=== PATIENT | male | born 1945 | race Caucasian/White ===

== ENCOUNTER 2019-02-08 12:48 | Inpatient (IN) | payer MEDICARE ==
[2019-02-08 13:51] LABS: ALBUMIN 3.7 g/dL (3.5-5.0); ALKALINE PHOSPHATASE 82 U/L (38-126); ANION GAP 10 (5-19); ASPARTATE AMINO TRANSFERASE 21 U/L (17-59); BILIRUBIN,DIRECT 0.1 mg/dL (0.0-0.4); BILIRUBIN,TOTAL 0.5 mg/dL (0.2-1.3); BLOOD UREA NITROGEN 15 mg/dL (7-20); CALCIUM 9.9 mg/dL (8.4-10.2); CARBON DIOXIDE 23 mmol/L (22-30); CHLORIDE 102 mmol/L (98-107); CREATINE KINASE 30 U/L (55-170); GLUCOSE 102 mg/dL (75-110); POTASSIUM 4.5 mmol/L (3.6-5.0); TOTAL PROTEIN 6.8 g/dL (6.3-8.2)
[2019-02-08 14:04] LABS: CREATINE KINASE MB < 0.22 ng/mL (<4.55); TROPONIN I < 0.012 ng/mL
[2019-02-08 14:28] LABS: ABSOLUTE EOSINOPHILS # (AUTO) 0.4 10^3/uL (0.0-0.6); ABSOLUTE LYMPHOCYTES (AUTO) 1.3 10^3/uL (0.5-4.7); ABSOLUTE MONOCYTES (AUTO) 0.8 10^3/uL (0.1-1.4); ABSOLUTE NEUT (AUTO) 3.4 10^3/uL (1.7-8.2); BASOPHILS % (AUTO) 0.8 % (0-2); EOSINOPHILS % (AUTO) 6.8 % (0-6); HEMATOCRIT 45.8 % (37.9-51.0); HEMOGLOBIN 15.4 g/dL (13.5-17.0); LYMPHOCYTES % (AUTO) 21.5 % (13-45); MEAN CORPUSCULAR HEMOGLOBIN 29.4 pg (27.0-33.4); MEAN CORPUSCULAR HGB CONC 33.5 g/dL (32.0-36.0); MEAN CORPUSCULAR VOLUME 88 fl (80-97); MONOCYTES % (AUTO) 13.5 % (3-13); PLATELET COUNT 186 10^3/uL (150-450); RED BLOOD COUNT 5.23 10^6/uL (4.35-5.55); RED CELL DISTRIBUTION WIDTH 14.2 % (11.5-14.0); SEGMENTED NEUTROPHILS % (AUTO) 57.4 % (42-78); TOTAL CELLS COUNTED % (AUTO) 100 %; WHITE BLOOD COUNT 5.9 10^3/uL (4.0-10.5)
--- NOTE | 2019-02-08 15:57 | ER Document Report ---
ED Dizziness/Weakness - General TRAVEL OUTSIDE OF THE [place] IN LAST 30 DAYS: No - HPI Onset/Duration: Gradual Quality of pain: No pain Severity: Moderate Baseline gait: Uses a walker <PAULA MOHR - Last Filed: 02/08/19 16:31> <MARTHAFRANCISABELARDO - Last Filed: 02/08/19 21:24> - General Chief Complaint: General Weakness Stated Complaint: WEAKNESS Time Seen by Provider: 02/08/19 15:56 Primary Care Provider: BARTOLO REAL MD [Primary Care Provider] - Follow up as needed - HPI Notes: 73 year old male who is poorly functional at baseline - chronic respiratory failure 4 liters all the time, dm, alex, frequent falls, dementia, htn, depression, copd, obestiy - has had progressive weakness over the past few days perhaps a week per the . No known fever but cough present and poor appetite which is abnormaly for him. Bladder incontinence is not new. (PAULA MOHR) - Related Data Allergies/Adverse Reactions: No Known Allergies Allergy (Unverified 01/19/16 18:22) Past Medical History - Social History Smoking Status: Unknown if Ever Smoked Frequency of alcohol use: None Drug Abuse: None Family History: Reviewed & Not Pertinent Patient has suicidal ideation: No Patient has homicidal ideation: No - Past Medical History Cardiac Medical History: Reports: Hx Hypertension Pulmonary Medical History: Reports: Hx Asthma, Hx COPD Endocrine Medical History: Reports: Hx Diabetes Mellitus Type 2 Renal/ Medical History: Reports: Hx Benign Prostatic Hyperplasia Psychiatric Medical History: Reports: Hx Dementia, Hx Depression Past Surgical History: Reports: Hx Orthopedic Surgery <PAULA MOHR - Last Filed: 02/08/19 16:31> Review of Systems - Review of Systems Constitutional: Weakness EENT: No symptoms reported Cardiovascular: No symptoms reported Respiratory: See HPI, Cough Gastrointestinal: No symptoms reported Genitourinary: No symptoms reported Male Genitourinary: No symptoms reported Musculoskeletal: No symptoms reported Skin: No symptoms reported Hematologic/Lymphatic: No symptoms reported Neurological/Psychological: See HPI, Confusion, Dementia, Depression <PAULA MOHR - Last Filed: 02/08/19 16:31> Physical Exam - Vital signs Interpretation: Normal - General General appearance: Appears well, Alert - HEENT Head: Normocephalic, Atraumatic Eyes: Normal Pupils: PERRL - Respiratory Respiratory status: No respiratory distress Chest status: Nontender Breath sounds: Normal Chest palpation: Normal - Cardiovascular Rhythm: Regular Heart sounds: Normal auscultation Murmur: No - Abdominal Inspection: Normal Distension: No distension Bowel sounds: Normal Tenderness: Nontender Organomegaly: No organomegaly - Back Back: Normal, Nontender - Extremities General upper extremity: Normal inspection, Nontender, Normal color, Normal ROM, Normal temperature General lower extremity: Normal inspection, Nontender, Normal color, Normal ROM, Normal temperature, Normal weight bearing. No: Sammy's sign - Neurological Neuro grossly intact: Yes Cognition: Normal Orientation: AAOx4 [place] Coma Scale Eye Opening: Spontaneous [place] Coma Scale Verbal: Oriented [place] Coma Scale Motor: Obeys Commands Johnny Coma Scale Total: 15 Speech: Normal Motor strength normal: LUE, RUE, LLE, RLE Sensory: Normal - Psychological Associated symptoms: Normal affect, Normal mood - Skin Skin Temperature: Warm Skin Moisture: Dry Skin Color: Normal <PAULA MOHR P - Last Filed: 02/08/19 16:31> - Vital signs Vitals: Resp BP Pulse Ox 26 H 131/80 H 93 02/08/19 13:13 02/08/19 13:13 02/08/19 13:13 Course - Laboratory Result Diagrams: 02/08/19 14:20 02/08/19 13:20 <PAULA MOHR P - Last Filed: 02/08/19 16:31> - Laboratory Result Diagrams: 02/08/19 14:20 02/08/19 13:20 <ABELARDO REDMOND - Last Filed: 02/08/19 21:24> - Re-evaluation Re-evalutation: 02/08/19 21:[address] Baez who agrees to admit the patient to the medical floor for weakness causing multiple falls and ambulatory dysfunction. Laboratory studies are unremarkable, chest x-ray shows acute versus chronic bilateral pulmonary opacities. Patient is stable on his normal 4 L oxygen via nasal cannula as per at home. Blood work grossly unremarkable. (ABELARDO REDMOND) - Vital Signs Vital signs: Temp Pulse Resp BP Pulse Ox 99.5 F 25 H 158/97 H 90 L 02/08/19 13:43 02/08/19 19:01 02/08/19 19:01 02/08/19 19:01 - Laboratory Laboratory results interpreted by me: 02/08/19 02/08/19 02/08/19 13:20 14:20 19:20 RDW 14.2 H [place] % (Auto) 13.5 H Eos % (Auto) 6.8 H Sodium 134.5 L Creatine Kinase 30 L Urine Ketones TRACE H Urine Urobilinogen 2.0 H - EKG Interpretation by Me Additional EKG results interpreted by me: 02/08/19 21:24 EKG shows sinus rhythm at a rate of 80, left axis deviation, normal intervals, no ST segment elevations or depressions per my interpretation. (ABELARDO REDMOND) Discharge <PAULA MOHR - Last Filed: 02/08/19 16:31> - Discharge Admitting Provider: Nestor (Hospitalist) Unit Admitted: Medical Floor <ABELARDO REDMOND - Last Filed: 02/08/19 21:24> - Discharge Clinical Impression: Multiple falls, Unable to ambulate, Weakness, Ambulatory dysfunction, Opacities of both lungs present on chest x-ray Vascular dementia Qualifiers: Dementia behavioral disturbance: without behavioral disturbance Qualified Code(s): F01.50 - Vascular dementia without behavioral disturbance Condition: Stable Disposition: ADMITTED INPATIENT Referrals: BARTOLO REAL MD [Primary Care Provider] - Follow up as needed
--- NOTE | 2019-02-08 18:15 | EKG REPORT ---
SEVERITY:- BORDERLINE ECG - SINUS RHYTHM 80. : Confirmed by: Garland Raphael MD 08-Feb-2019 18:10:54
--- NOTE | 2019-02-08 18:30 | RADIOLOGY REPORT (SQ) ---
EXAM DESCRIPTION: CT HEAD WITHOUT COMPLETED DATE/TIME: 02/08/2019 6:21 pm REASON FOR STUDY: ALOC COMPARISON: 06/11/2008 TECHNIQUE: Axial images acquired through the brain without intravenous contrast. Images reviewed wi th bone, brain and subdural windows. Additional sagittal and coronal reconstructions were generated. Images stored on PACS. All CT scanners at this facility use dose modulation, iterative reconstruction, and/or weight based d osing when appropriate to reduce radiation dose to as low as reasonably achievable (ALARA). [facility]: Dose Right [facility]: CareDose [facility]: Dose Right [facility]: Teradose 4D [facility]: [place] RADIATION DOSE: mGy. LIMITATIONS: None. FINDINGS: VENTRICLES: Prominent ventricles secondary to involutional atrophy. CEREBRUM: Cortical atrophy. No masses. No hemorrhage. No midline shift. Lacunar infarct on the ri ght in the anterior limb of the internal capsule. No evidence for acute infarction. Extensive areas of low density in the white matter most likely chronic small vessel ischemic changes. CEREBELLUM: No masses. No hemorrhage. No alteration of density. No evidence for acute infarction. EXTRAAXIAL SPACES: No fluid collections. No masses. ORBITS AND GLOBE: No intra- or extraconal masses. Normal contour of globe without masses. CALVARIUM: No fracture. PARANASAL SINUSES: There is opacification of a few of the ethmoid air cells. SOFT TISSUES: No mass or hematoma. OTHER: No other significant finding. IMPRESSION: MICROVASCULAR ISCHEMIA AND GENERALIZED ATROPHY. NO ACUTE IMAGING FINDINGS IN THE BRAIN. MILD SINUS DISEASE. EVIDENCE OF ACUTE STROKE: NO. COMMENT: Quality ID # [id number]: Final reports with documentation of one or more dose reduction techniques (e.g., Automated exposure control, adjustment of the mA and/or kV according to patient size, use of iterative reconstruction technique) TECHNICAL DOCUMENTATION: JOB ID: [id number] [employer]- All Rights Reserved Reading location - IP/workstation name: [email or web address]
--- NOTE | 2019-02-08 19:04 | RADIOLOGY REPORT (SQ) ---
EXAM DESCRIPTION: CHEST SINGLE VIEW COMPLETED DATE/TIME: 02/08/2019 6:47 pm REASON FOR STUDY: cough COMPARISON: 01/19/2016 EXAM PARAMETERS: NUMBER OF VIEWS: One view. TECHNIQUE: Single frontal radiographic view of the chest acquired. RADIATION DOSE: NA LIMITATIONS: None. FINDINGS: LUNGS AND PLEURA: Vague interstitial changes present through the lungs. No focal opacitie s. No effusions. MEDIASTINUM AND HILAR STRUCTURES: No masses. Contour normal. HEART AND VASCULAR STRUCTURES: Heart normal in size. Normal vasculature. BONES: No acute findings. HARDWARE: None in the chest. OTHER: No other significant finding. IMPRESSION: Vague interstitial opacities through the lungs. Question acute versus chronic. Not pre sent 2015. Infection/ inflammation/pulmonary fibrosis TECHNICAL DOCUMENTATION: JOB ID: [id number] [employer]- All Rights Reserved Reading location - IP/workstation name: [email or web address]
[2019-02-08 19:50] LABS: APPEARANCE,URINE CLEAR; BILIRUBIN,URINE NEGATIVE (NEGATIVE); COLOR,URINE YELLOW; GLUCOSE, URINE NEGATIVE (NEGATIVE); KETONES,URINE TRACE mg/dL (NEGATIVE); LEUKOCYTE ESTERASE,URINE NEGATIVE (NEGATIVE); NITRITE,URINE NEGATIVE (NEGATIVE); PROTEIN,URINE NEGATIVE (NEGATIVE); URINE SPECIFIC GRAVITY 1.021
[2019-02-08] MEDS ORDERED: MAG HYDROX/AL HYDROX/SIMETH SUSP 30 ML UDCUP PO PRN (21:56)
[2019-02-08] MEDS ORDERED: ACETAMINOPHEN 325 MG TABLET PO PRN (21:56)
[2019-02-08] MEDS ORDERED: MAGNESIUM HYDROXIDE SUSP 30 ML UDCUP PO PRN (21:56)
[2019-02-08] MEDS ORDERED: LEVALBUTEROL HCL NEB 0.63 MG/3 ML AMPUL NEB PRN (21:56)
[2019-02-08] MEDS ORDERED: ONDANSETRON HCL INJ/PF 4 MG/2 ML SDV IV PRN (21:57)
[2019-02-08] MEDS ORDERED: HALOPERIDOL LACTATE INJ 5 MG/1 ML VIAL IV PRN (22:05)
[2019-02-08] MEDS ORDERED: LORAZEPAM INJ 2 MG/1 ML VIAL IV PRN (22:05)
[2019-02-08] MEDS: HEPARIN SOD (PORCINE) 5,000 UNIT/ML 1 ML VIAL SUBCUT SCH (22:29)
--- NOTE | 2019-02-08 22:29 | PDOC H&P ---
History of Present Illness Admission Date/PCP: 02/08/2019 22:11 BARTOLO REAL MD Patient complains of: Weakness History of Present Illness: TORSTEN CRANDALL JR is a 73 year old male who presents the emergency room via EMS with a one-week history of weakness. The patient has dementia and is unable to contribute to his historical database. His indicates that for the last week he has been progressively weaker having sustained several falls over the course of the week for times requiring EMS to come to the house and assist in getting him up. The patient has COPD and is on 4 L of oxygen on a continuous basis and uses a walker to support him in ambulation. His expresses her concern that his weakness has become so severe over the last week. She denies any observed accompanying or associated signs or symptoms. She admits prior similar episodes of falls but this is a new increased frequency of falling and new progressive weakness. She has not identified any aggravating or ameliorating factors for his weakness. In the emergency room patient was found to have an unremarkable evaluation with findings typical of vascular dementia on his CT scan of the head and no unexpected laboratory findings. He was subsequently admitted to the hospital for further evaluation and treatment and consideration for possible post hospital [facility] placement. Past Medical History Cardiac Medical History: Reports: Hypertension Denies: Coronary Artery Disease, Myocardial Infarction Pulmonary Medical History: Reports: Asthma, Chronic Obstructive Pulmonary Disease (COPD), Respiratory Failure - Chronic uses oxygen at 4 L/min via nasal cannula continuously at home. EENT Medical History: Denies: Cataracts, Ears - Hearing aids Neurological Medical History: Reports: Other - Vascular dementia Denies: Hemorrhagic CVA, Ischemic CVA, Seizures Endocrine Medical History: Reports: Diabetes Mellitus Type 2 Denies: Diabetes Mellitus Type 1, Hyperthyroidism, Hypothyroidism Renal/ Medical History: Reports: Other - Benign prostatic hypertrophy Denies: Chronic Kidney Disease, Nephrolithiasis Malignancy Medical History: Reports: None GI Medical History: Denies: Cirrhosis, Hepatitis Musculoskeltal Medical History: Denies: Arthritis, Gout Skin Medical History: Denies: Eczema, Psoriasis Psychiatric Medical History: Reports: Dementia, Depression, Tobacco Dependency Denies: Alcohol Dependency, Substance Abuse Traumatic Medical History: Reports: None Hematology: Denies: Anemia, Bleeding Tendencies Infectious Medical History: Reports: None Past Surgical History Past Surgical History: Reports: Orthopedic Surgery Social History Information Source: Relative Lives with: Spouse/Significant other Smoking Status: Former Smoker Electronic Cigarette use?: No Frequency of Alcohol Use: Rare Hx Recreational Drug Use: No Drugs: None Hx Prescription Drug Abuse: No - Advance Directive Resuscitation Status: Full Code Surrogate healthcare decision maker:: Tana Crandall Family History Family History: CVA Parental Family History Reviewed: Yes Children Family History Reviewed: No Sibling(s) Family History Reviewed.: Yes Medication/Allergy Home Medications: Duloxetine HCl 30 mg PO BID 01/19/16 Losartan Potassium 50 mg PO BID 01/19/16 Tamsulosin HCl 0.4 mg PO DAILY 01/19/16 Aspirin [Bryce Chewable Aspirin] 81 mg PO DAILY 02/08/19 Cholecalciferol (Vitamin D3) [Vitamin D] 50,000 unit PO Q7D 02/08/19 Divalproex Sodium 250 mg PO BID 02/08/19 Metformin HCl 1 tab PO BID 02/08/19 Allergies/Adverse Reactions: No Known Allergies Allergy (Verified 02/08/19 21:56) Review of Systems ROS unobtainable: Due to mental status - Vascular dementia Physical Exam Vital Signs: Temp Pulse Resp BP Pulse Ox 99.5 F 16 167/89 H 92 02/08/19 13:43 02/08/19 21:01 02/08/19 21:01 02/08/19 21:01 Intake & Output 02/06/19 02/07/19 02/08/19 23:59 23:59 23:59 Weight 97.7 kg General appearance: PRESENT: no acute distress, cooperative Head exam: PRESENT: atraumatic, normocephalic Eye exam: PRESENT: conjunctiva pink. ABSENT: conjunctival injection, scleral icterus Ear exam: PRESENT: normal external ear exam. ABSENT: bleeding, drainage Mouth exam: PRESENT: dry mucosa, neck supple Neck exam: ABSENT: JVD, thyromegaly, tracheal deviation Respiratory exam: PRESENT: decreased breath sounds - Moderately decreased breath sounds throughout all feliz consistent with moderate to severe COPD, prolonged expiratory phas - Mildly prolonged expiratory phase in all feliz, symmetrical, unlabored, other - On O2 at 4 L/min via nasal cannula at the time of my evaluation Cardiovascular exam: PRESENT: RRR. ABSENT: clicks, gallop, rubs Pulses: PRESENT: normal radial pulses, normal dorsalis pedis pul Vascular exam: PRESENT: normal capillary refill. ABSENT: pallor GI/Abdominal exam: PRESENT: normal bowel sounds, soft Rectal exam: PRESENT: deferred Extremities exam: ABSENT: joint swelling, pedal edema Musculoskeletal exam: ABSENT: deformity, dislocation Neurological exam: PRESENT: alert, oriented to person, CN II-XII grossly intact. ABSENT: oriented to place, oriented to time, oriented to situation, motor sensory deficit Psychiatric exam: PRESENT: appropriate affect, normal mood Skin exam: PRESENT: dry, intact, warm. ABSENT: jaundice, rash, urticaria Results Laboratory Results: 02/08/19 14:20 02/08/19 13:20 02/08/19 02/08/19 02/08/19 13:20 13:20 13:20 WBC Cancelled RBC Cancelled Hgb Cancelled Hct Cancelled MCV Cancelled MCH Cancelled MCHC Cancelled RDW Cancelled Plt Count Cancelled Seg Neutrophils % Cancelled Sodium 134.5 L Cancelled Potassium 4.5 Cancelled Chloride 102 Cancelled Carbon Dioxide 23 Cancelled Anion Gap 10 Cancelled BUN 15 Cancelled Creatinine 1.00 Cancelled Est GFR ( Amer) > 60 Cancelled Est GFR (Non-Af Amer) Cancelled Glucose 102 Cancelled Calcium 9.9 Cancelled Magnesium 2.0 Total Bilirubin 0.5 Cancelled AST 21 Cancelled Alkaline Phosphatase 82 Cancelled Total Protein 6.8 Cancelled Albumin 3.7 Cancelled Urine Color Urine Appearance Urine pH Ur Specific [place] Urine Protein Urine Glucose (UA) Urine Ketones Urine Blood Urine Nitrite Ur Leukocyte Esterase Urine WBC (Auto) Urine RBC (Auto) 02/08/19 02/08/19 14:20 19:20 WBC 5.9 RBC 5.23 Hgb 15.4 Hct 45.8 MCV 88 MCH 29.4 MCHC 33.5 RDW 14.2 H Plt Count 186 Seg Neutrophils % 57.4 Sodium Potassium Chloride Carbon Dioxide Anion Gap BUN Creatinine Est GFR ( Amer) Est GFR (Non-Af Amer) Glucose Calcium Magnesium Total Bilirubin AST Alkaline Phosphatase Total Protein Albumin Urine Color YELLOW Urine Appearance CLEAR Urine pH 5.0 Ur Specific [place] 1.021 Urine Protein NEGATIVE Urine Glucose (UA) NEGATIVE Urine Ketones TRACE H Urine Blood NEGATIVE Urine Nitrite NEGATIVE Ur Leukocyte Esterase NEGATIVE Urine WBC (Auto) 2 Urine RBC (Auto) 1 02/08/19 02/08/19 13:20 13:20 Creatine Kinase 30 L CK-MB (CK-2) < 0.22 Troponin I < 0.012 Impressions: Chest X-Ray 02/08/19 16:30 IMPRESSION: Vague interstitial opacities through the lungs. Question acute versus chronic. Not present 2015. Infection/ inflammation/pulmonary fibrosis Head CT 02/08/19 16:54 IMPRESSION: MICROVASCULAR ISCHEMIA AND GENERALIZED ATROPHY. NO ACUTE IMAGING FINDINGS IN THE BRAIN. MILD SINUS DISEASE. EVIDENCE OF ACUTE STROKE: NO. Assessment and Plan - Diagnosis (1) Ambulatory dysfunction Is this a current diagnosis for this admission?: Yes (2) Multiple falls Is this a current diagnosis for this admission?: Yes (3) Vascular dementia Qualifiers: Dementia behavioral disturbance: without behavioral disturbance Qualified Code(s): F01.50 - Vascular dementia without behavioral disturbance Is this a current diagnosis for this admission?: Yes (4) Stage 3 severe COPD by GOLD classification Is this a current diagnosis for this admission?: Yes (5) Diabetes mellitus type 2 in nonobese Is this a current diagnosis for this admission?: Yes (6) Hyperlipidemia Qualifiers: Hyperlipidemia type: unspecified Qualified Code(s): E78.5 - Hyperlipidemia, unspecified Is this a current diagnosis for this admission?: Yes (7) Hypertension Qualifiers: Hypertension type: essential hypertension Qualified Code(s): I10 - Essential (primary) hypertension Is this a current diagnosis for this admission?: Yes (8) Benign prostatic hyperplasia Qualifiers: Lower urinary tract symptom presence: symptoms absent Qualified Code(s): N40.0 - Benign prostatic hyperplasia without lower urinary tract symptoms Is this a current diagnosis for this admission?: Yes - Plan Summary Summary: Patient will be admitted and evaluated for possible causes of his weakness and ambulatory dysfunction. A PT and OT consult will be obtained. A speech therapy consult will be obtained for preliminary evaluation. business services vice president consultati on will be obtained for possible post hospital placement. Patient will be treated with Ativan 1 mg IV every 2 hours as needed for anxiety or mild agitation and Haldol 2 mg IV every 4 hours as needed for severe anxiety, severe agitation or restlessness. He will receive routine supportive and symptomatic cares during his hospital course. He will be maintained on a cardiac diet with diabetic diet restrictions. He will be continued on his usual home medications for control of his chronic medical problems. - Time Time Spent with patient: 25-34 minutes Medications reviewed and adjusted accordingly: Yes Anticipated discharge: SNF - Inpatient Certification Based on my medical assessment, after consideration of the patient's comorbidities, presenting symptoms, or acuity I expect that the services needed warrant INPATIENT care.: Yes I certify that my determination is in accordance with my understanding of Medicare's requirements for reasonable and necessary INPATIENT services [42 CFR 412.3e].: Yes Medical Necessity: Significant Comorbidiites Make Outpatient Treatment Too Risky, Need Close Monitoring Due to Risk of Patient Decompensation, Need for Neurological Checks, Risk of Complication if Not Cared For in Hospital, Risk of Diagnosis Which Will Require Inpatient Eval/Care/Monitoring
[2019-02-08] MEDS ORDERED: DEXTROSE 50%-WATER 25 GM/50 ML DISP.SYRIN IV PRN ×2 (22:35)
[2019-02-08] MEDS ORDERED: DEXTROSE 40% GEL 15 GM TUBE PO PRN ×2 (22:35)
[2019-02-08] MEDS ORDERED: GLUCAGON,HUMAN RECOMB 1 MG INJ IM PRN (22:35)
[2019-02-08] MEDS: DULOXETINE HCL 30 MG CAPSULE.DR PO SCH (22:55)
[2019-02-08] MEDS ORDERED: LOSARTAN POTASSIUM 50 MG TABLET PO ONE (23:00)
[2019-02-08] MEDS ORDERED: DIVALPROEX SODIUM 250 MG TABLET.DR PO ONE (23:00)
[2019-02-08] MEDS ORDERED: METFORMIN HCL 500 MG TABLET PO ONE (23:00)
[2019-02-08] MEDS ORDERED: DULOXETINE HCL 30 MG CAPSULE.DR PO ONE (23:00)
[2019-02-08] MEDS ORDERED: INSULIN REG, HUMAN 100 UNIT/ML 3 ML VIAL (PYX) SUBCUT ONE (23:00)
[2019-02-08 23:38] LABS: CREATINE KINASE MB < 0.22 ng/mL (<4.55); TROPONIN I < 0.012 ng/mL
[2019-02-08 23:39] LABS: FREE T3 3.53 pg/mL (2.77-5.27); FREE T4 (FREE THYROXINE) 1.04 ng/dL (0.78-2.19)
[2019-02-08 23:53] LABS: THYROID STIMULATING HORMONE 2.04 uIU/mL (0.47-4.68)
[2019-02-09] MEDS: IPRATROPIUM BROMIDE 0.02% NEB 0.5 MG/2.5 ML AMPUL NEB SCH ×4 (00:18→23:44)
[2019-02-09] MEDS: LEVALBUTEROL HCL NEB 1.25 MG/3 ML AMPUL NEB SCH ×4 (00:18→23:44)
[2019-02-09] MEDS ORDERED: HYDRALAZINE HCL INJ/PF 20 MG/1 ML SDV IV PRN (00:33)
[2019-02-09 06:13] LABS: HEMATOCRIT 45.5 % (37.9-51.0); HEMOGLOBIN 15.5 g/dL (13.5-17.0); MEAN CORPUSCULAR HEMOGLOBIN 29.9 pg (27.0-33.4); MEAN CORPUSCULAR HGB CONC 34.1 g/dL (32.0-36.0); MEAN CORPUSCULAR VOLUME 88 fl (80-97); PLATELET COUNT 190 10^3/uL (150-450); RED BLOOD COUNT 5.19 10^6/uL (4.35-5.55); RED CELL DISTRIBUTION WIDTH 13.9 % (11.5-14.0); WHITE BLOOD COUNT 6.3 10^3/uL (4.0-10.5)
[2019-02-09] MEDS: HEPARIN SOD (PORCINE) 5,000 UNIT/ML 1 ML VIAL SUBCUT SCH ×3 (06:19→22:30)
[2019-02-09 06:26] LABS: ANION GAP 12 (5-19); BLOOD UREA NITROGEN 12 mg/dL (7-20); CALCIUM 9.4 mg/dL (8.4-10.2); CARBON DIOXIDE 25 mmol/L (22-30); CHLORIDE 98 mmol/L (98-107); CREATINE KINASE 25 U/L (55-170); GLUCOSE 94 mg/dL (75-110); POTASSIUM 4.7 mmol/L (3.6-5.0)
[2019-02-09 06:45] LABS: CREATINE KINASE MB < 0.22 ng/mL (<4.55); TROPONIN I < 0.012 ng/mL
[2019-02-09] MEDS: INSULIN REG, HUMAN 100 UNIT/ML 3 ML VIAL (PYX) SUBCUT SCH ×4 (07:46→22:26)
[2019-02-09] MEDS: BUDESONIDE NEB 0.5 MG/2 ML AMPUL NEB SCH ×2 (07:47→20:24)
[2019-02-09] MEDS: METFORMIN HCL 500 MG TABLET PO SCH ×2 (09:09→18:22)
[2019-02-09] MEDS: LOSARTAN POTASSIUM 50 MG TABLET PO SCH ×2 (09:10→18:22)
[2019-02-09] MEDS: DOCUSATE SODIUM 100 MG CAPSULE PO SCH ×2 (09:10→18:22)
[2019-02-09] MEDS: CHOLECALCIFEROL (D3) 1,000 UNIT (25 MCG) TABLET PO SCH (09:10)
[2019-02-09] MEDS: DULOXETINE HCL 30 MG CAPSULE.DR PO SCH ×2 (09:10→22:30)
[2019-02-09] MEDS: ASPIRIN 81 MG TABLET, CHEWABLE PO SCH (09:10)
[2019-02-09] MEDS: TAMSULOSIN HCL 0.4 MG CAP.SR.24H PO SCH (09:10)
[2019-02-09] MEDS ORDERED: DIVALPROEX SODIUM 250 MG TABLET.DR PO SCH (10:00)
[2019-02-09] MEDS ORDERED: METFORMIN HCL 500 MG TABLET PO SCH (10:00)
[2019-02-09 13:41] LABS: CREATINE KINASE MB < 0.22 ng/mL (<4.55); TROPONIN I < 0.012 ng/mL
[2019-02-09] MEDS ORDERED: NORMAL SALINE 1000 ML 1,000 ML IV PRN (17:08)
--- NOTE | 2019-02-09 18:21 | PDOC PROGRESS REPORT ---
Subjective Progress Note for:: 02/09/19 Subjective:: The patient is a 73-year-old male with a past medical history of hypertension, COPD, asthma, chronic respiratory failure (4 L via nasal cannula), vascular dementia, DM 2, BPH, depression and tobacco dependency who was admitted 02/08/2019 for generalized weakness resulting in ambulatory dysfunction and multiple falls. Patient was seen on afternoon rounds. He was initially sleeping but woke easily when I said his name. He is currently on his baseline oxygen requirement. His primary complaint is fatigue; does report that this is chronic and indicates that he sleeps through most of the day and throughout the night. He does utilize supplemental oxygen continuously with CPAP at night. He denies fever, chills, chest pain, palpitations, dyspnea, cough, abdominal pain, nausea vomiting and diarrhea. He reports that he would like to be discharged to home with home health services when ready. Otherwise he has no questions or concerns at this time. No concerns per nursing. Reason For Visit: AMBULATORY DYSFUNCTION,MULTIPLE FALLS,COPD Physical Exam Vital Signs: Temp Pulse Resp BP Pulse Ox 97.7 F 77 16 148/85 H 93 02/09/19 03:21 02/09/19 16:00 02/09/19 16:00 02/09/19 03:21 02/09/19 16:00 Intake & Output 02/08/19 02/09/19 02/10/19 06:59 06:59 06:59 Intake Total 360 Balance 360 Weight 97.9 kg General appearance: PRESENT: no acute distress, cooperative, hard of hearing, obese, well-developed, well-nourished Head exam: PRESENT: atraumatic, normocephalic Eye exam: PRESENT: conjunctiva pink, EOMI, PERRLA. ABSENT: scleral icterus Ear exam: PRESENT: normal external ear exam Mouth exam: PRESENT: dry mucosa, tongue midline Teeth exam: PRESENT: poor dentation Neck exam: ABSENT: carotid bruit, JVD, lymphadenopathy, thyromegaly Respiratory exam: PRESENT: clear to auscultation taina, symmetrical, unlabored. ABSENT: rales, rhonchi, wheezes Cardiovascular exam: PRESENT: RRR, +S1, +S2. ABSENT: diastolic murmur, rubs, systolic murmur Pulses: PRESENT: normal dorsalis pedis pul Vascular exam: PRESENT: normal capillary refill GI/Abdominal exam: PRESENT: normal bowel sounds, soft, other - Rotund. ABSENT: distended, guarding, mass, organolmegaly, rebound, tenderness Rectal exam: PRESENT: deferred Extremities exam: PRESENT: full ROM. ABSENT: calf tenderness, clubbing, pedal edema Neurological exam: PRESENT: alert, awake, oriented to person, oriented to place, oriented to time, oriented to situation, CN II-XII grossly intact. ABSENT: motor sensory deficit Psychiatric exam: PRESENT: appropriate affect, normal mood. ABSENT: homicidal ideation, suicidal ideation Skin exam: PRESENT: dry, intact, warm. ABSENT: cyanosis, rash Results Laboratory Results: 02/09/19 04:59 02/09/19 04:59 02/08/19 02/08/19 02/09/19 19:20 22:45 04:59 WBC RBC Hgb Hct MCV MCH MCHC RDW Plt Count Sodium 134.8 L Potassium 4.7 Chloride 98 Carbon Dioxide 25 Anion Gap 12 BUN 12 Creatinine 0.99 Est GFR ( Amer) > 60 Glucose 94 Calcium 9.4 Magnesium 2.1 TSH 2.04 Free T4 1.04 Free T3 pg/mL 3.53 Urine Color YELLOW Urine Appearance CLEAR Urine pH 5.0 Ur Specific [place] 1.021 Urine Protein NEGATIVE Urine Glucose (UA) NEGATIVE Urine Ketones TRACE H Urine Blood NEGATIVE Urine Nitrite NEGATIVE Ur Leukocyte Esterase NEGATIVE Urine WBC (Auto) 2 Urine RBC (Auto) 1 02/09/19 04:59 WBC 6.3 RBC 5.19 Hgb 15.5 Hct 45.5 MCV 88 MCH 29.9 MCHC 34.1 RDW 13.9 Plt Count 190 Sodium Potassium Chloride Carbon Dioxide Anion Gap BUN Creatinine Est GFR ( Amer) Glucose Calcium Magnesium TSH Free T4 Free T3 pg/mL Urine Color Urine Appearance Urine pH Ur Specific [place] Urine Protein Urine Glucose (UA) Urine Ketones Urine Blood Urine Nitrite Ur Leukocyte Esterase Urine WBC (Auto) Urine RBC (Auto) 02/08/19 02/08/19 02/08/19 13:20 13:20 22:45 Creatine Kinase 30 L 21 L CK-MB (CK-2) < 0.22 Troponin I < 0.012 02/08/19 02/09/19 02/09/19 22:45 04:59 04:59 Creatine Kinase 25 L CK-MB (CK-2) < 0.22 < 0.22 Troponin I < 0.012 < 0.012 02/09/19 02/09/19 12:29 12:29 Creatine Kinase 32 L CK-MB (CK-2) < 0.22 Troponin I < 0.012 Impressions: Chest X-Ray 02/08/19 16:30 IMPRESSION: Vague interstitial opacities through the lungs. Question acute versus chronic. Not present 2015. Infection/ inflammation/pulmonary fibrosis Head CT 02/08/19 16:54 IMPRESSION: MICROVASCULAR ISCHEMIA AND GENERALIZED ATROPHY. NO ACUTE IMAGING FINDINGS IN THE BRAIN. MILD SINUS DISEASE. EVIDENCE OF ACUTE STROKE: NO. Assessment and Plan - Diagnosis (1) Ambulatory dysfunction Is this a current diagnosis for this admission?: Yes Plan: Unclear etiology. Perhaps r/t COPD/chronic respiratory failure. Although labs and vital signs are overall reassuring, the patient does appear somewhat dehydrated on exam. There is no indication of CHF in CXR or laboratory work-up. Troponins are negative x4. Thyroid panel is acceptable. Urinalysis is negative. Will obtain ABG in AM. Will provide gentle IV fluids. Orthostatic vital signs every shift. We will decrease Depakote (no history of seizures per patient or in records; likely on Depakote for mood stability related to vascular dementia). Fall precautions. PT/OT consultation. Discharge planning is consulted; patient indicates he would like to be discharged home with home health services. (2) Multiple falls Is this a current diagnosis for this admission?: Yes Plan: Unclear etiology. Evaluation management as above. (3) Diabetes mellitus type 2 in nonobese Is this a current diagnosis for this admission?: Yes Plan: Hemoglobin A1c 6.0%. Consistent carb/cardiac diet. Hold home dose metformin. Accu-Cheks before meals and at bedtime with sliding scale insulin for coverage. Hypoglycemia protocol in place. Given the patient's age and life expectancy, it would not be unreasonable to consider an A1c goal of less than 8.5; which case, his home dose metformin could be decreased to once daily. It is possible that his weakness and ambulatory dysfunction may be related to borderline low blood sugars. (4) Stage 3 severe COPD by GOLD classification Is this a current diagnosis for this admission?: Yes Plan: Stable and not in acute exacerbation at this time. Continue supplemental oxygen to maintain saturations greater than 89%. Continue scheduled and as needed nebulizer treatments. No indications for antibiotic or steroid therapy at this time. (5) Vascular dementia Qualifiers: Dementia behavioral disturbance: without behavioral disturbance Qualified Code(s): F01.50 - Vascular dementia without behavioral disturbance Is this a current diagnosis for this admission?: Yes Plan: Supportive care. Decreasing Depakote slightly today from 250 mg twice daily (500 mg daily) 125 mg 3 times daily to (375 mg daily) related to generalized weakness since fatigue. Fall precautions. (6) Hyperlipidemia Qualifiers: Hyperlipidemia type: unspecified Qualified Code(s): E78.5 - Hyperlipidemia, unspecified Is this a current diagnosis for this admission?: Yes (7) Hypertension Qualifiers: Hypertension type: essential hypertension Qualified Code(s): I10 - Essential (primary) hypertension Is this a current diagnosis for this admission?: Yes Plan: Obtaining orthostatic vital signs each shift. Continue home dose losartan. Cardiac diet. (8) JODIE (obstructive sleep apnea) Is this a current diagnosis for this admission?: Yes Plan: CPAP nightly. (9) Benign prostatic hyperplasia Qualifiers: Lower urinary tract symptom presence: symptoms absent Qualified Code(s): N40.0 - Benign prostatic hyperplasia without lower urinary tract symptoms Is this a current diagnosis for this admission?: Yes Plan: Continue home dose Flomax. - Plan Summary Summary: Patient will be admitted and evaluated for possible causes of his weakness and ambulatory dysfunction. A PT and OT consult will be obtained. A speech therapy consult will be obtained for preliminary evaluation. services host consultation will be obtained for possible post hospital placement. Patient will be treated with Ativan 1 mg IV every 2 hours as needed for anxiety or mild agitation and Haldol 2 mg IV every 4 hours as needed for severe anxiety, severe agitation or restlessness. He will receive routine supportive and symptomatic cares during his hospital course. He will be maintained on a cardiac diet with diabetic diet restrictions. He will be continued on his usual home medications for control of his chronic medical problems. - Time Time Spent with patient: 25-34 minutes Medications reviewed and adjusted accordingly: Yes Anticipated discharge: Home with Homehealth Within: within 48 hours
[2019-02-09 19:06] LABS: ARTERIAL BLOOD BASE EXCESS 0.3 mmol/L; ARTERIAL BLOOD FIO2 4L; ARTERIAL BLOOD H2CO3 1.15 mmol/L (1.05-1.35); ARTERIAL BLOOD HCO3 24.4 mmol/L (20-24); ARTERIAL BLOOD O2 SATURATION 85.3 % (94-98); ARTERIAL BLOOD PCO2 38.1 mmHg (35-45); ARTERIAL BLOOD PH 7.42 (7.35-7.45); ARTERIAL BLOOD PO2 48.5 mmHg (80-100); ARTERIAL BLOOD TOTAL CO2 25.6 mmol/L (23-27)
[2019-02-09] MEDS: DIVALPROEX SODIUM 125 MG CAP.SPRINK PO SCH (22:30)
[2019-02-10 05:25] LABS: ANION GAP 12 (5-19); BLOOD UREA NITROGEN 15 mg/dL (7-20); CALCIUM 9.5 mg/dL (8.4-10.2); CARBON DIOXIDE 23 mmol/L (22-30); CHLORIDE 100 mmol/L (98-107); GLUCOSE 102 mg/dL (75-110); POTASSIUM 4.2 mmol/L (3.6-5.0)
[2019-02-10] MEDS: HEPARIN SOD (PORCINE) 5,000 UNIT/ML 1 ML VIAL SUBCUT SCH ×3 (05:53→22:06)
[2019-02-10] MEDS: IPRATROPIUM BROMIDE 0.02% NEB 0.5 MG/2.5 ML AMPUL NEB SCH ×2 (07:39→15:55)
[2019-02-10] MEDS: LEVALBUTEROL HCL NEB 1.25 MG/3 ML AMPUL NEB SCH ×2 (07:39→15:55)
[2019-02-10] MEDS: BUDESONIDE NEB 0.5 MG/2 ML AMPUL NEB SCH ×2 (07:39→20:15)
[2019-02-10] MEDS ORDERED: INFLUENZA QUAD (6MOS+) 2019-20 VAC 0.5 ML SYR IM ONE (08:00)
[2019-02-10] MEDS: INSULIN REG, HUMAN 100 UNIT/ML 3 ML VIAL (PYX) SUBCUT SCH ×4 (08:56→21:54)
[2019-02-10] MEDS: DOCUSATE SODIUM 100 MG CAPSULE PO SCH ×2 (10:29→17:26)
[2019-02-10] MEDS: CHOLECALCIFEROL (D3) 1,000 UNIT (25 MCG) TABLET PO SCH (10:29)
[2019-02-10] MEDS: ASPIRIN 81 MG TABLET, CHEWABLE PO SCH (10:29)
[2019-02-10] MEDS: TAMSULOSIN HCL 0.4 MG CAP.SR.24H PO SCH (10:30)
[2019-02-10] MEDS: DULOXETINE HCL 30 MG CAPSULE.DR PO SCH ×2 (10:30→22:06)
[2019-02-10] MEDS: DIVALPROEX SODIUM 125 MG CAP.SPRINK PO SCH ×2 (10:30→22:06)
[2019-02-10] MEDS: LOSARTAN POTASSIUM 50 MG TABLET PO SCH ×2 (10:30→17:26)
--- NOTE | 2019-02-10 14:45 | RADIOLOGY REPORT (SQ) ---
EXAM DESCRIPTION: CHEST SINGLE VIEW COMPLETED DATE/TIME: 02/10/2019 2:34 pm REASON FOR STUDY: HYPOXIA ( PER PROTOCOL FOR NM VQ SCAN) COMPARISON: None. EXAM PARAMETERS: NUMBER OF VIEWS: One view. TECHNIQUE: Single frontal radiographic view of the chest acquired. RADIATION DOSE: NA LIMITATIONS: None. FINDINGS: LUNGS AND PLEURA: Diffuse bilateral interstitial opacities, mildly increased in conspicuit y from prior. No dense consolidation. No large effusion. No pneumothorax. MEDIASTINUM AND HILAR STRUCTURES: No masses. Contour normal. HEART AND VASCULAR STRUCTURES: Normal heart size. Aortic atherosclerosis. BONES: No acute findings. HARDWARE: None in the chest. OTHER: No other significant finding. IMPRESSION: Increased diffuse bilateral interstitial opacities. Findings may represent edema, atypi eh infection or possibly fibrotic change. CT could be considered for further characterization. TECHNICAL DOCUMENTATION: JOB ID: [id number] [employer]- All Rights Reserved Reading location - IP/workstation name: [email or web address]
--- NOTE | 2019-02-10 14:47 | RADIOLOGY REPORT (SQ) ---
EXAM DESCRIPTION: NM LUNG VENT/PERF SCAN COMPLETED DATE/TIME: 02/10/2019 2:30 pm REASON FOR STUDY: hypoxia, dyspnea COMPARISON: Same day radiograph RADIONUCLIDE AND DOSE: 5.38 millicuries TC-99m MAA Intravenous 27.3 millicuries TC-99m DTPA Inhaled aerosol TECHNIQUE: Eight views of the lungs acquired post ventilation of DTPA aerosol. Eight matching views of the lungs acquired following injection of MAA. LIMITATIONS: None. FINDINGS: VENTILATION: Heterogeneous activity with clumping of radiotracer along the central airways . No focal defect. PERFUSION: Perfusion images with normal homogenous activity and no wedge-shaped or segmental defects. No ventilation-perfusion mismatches. OTHER: No other significant finding. IMPRESSION: No mismatched perfusion defect to suggest pulmonary embolus (low probability). TECHNICAL DOCUMENTATION: JOB ID: [id number] [employer]- All Rights Reserved Reading location - IP/workstation name: [email or web address]
[2019-02-10 15:28] LABS: ARTERIAL BLOOD BASE EXCESS 0.4 mmol/L; ARTERIAL BLOOD FIO2 5 L; ARTERIAL BLOOD H2CO3 1.19 mmol/L (1.05-1.35); ARTERIAL BLOOD HCO3 24.8 mmol/L (20-24); ARTERIAL BLOOD O2 SATURATION 92.5 % (94-98); ARTERIAL BLOOD PCO2 39.4 mmHg (35-45); ARTERIAL BLOOD PH 7.42 (7.35-7.45); ARTERIAL BLOOD PO2 62.8 mmHg (80-100)
--- NOTE | 2019-02-10 16:46 | PDOC PROGRESS REPORT ---
Subjective Progress Note for:: 02/10/19 Subjective:: The patient is a 73-year-old male with a past medical history of hypertension, COPD, asthma, chronic respiratory failure (4 L via nasal cannula), vascular dementia, DM 2, BPH, depression and tobacco dependency who was admitted 02/08/2019 for generalized weakness resulting in ambulatory dysfunction and multiple falls. Patient was seen on afternoon rounds with his present. The patient utilizes 4 L/min with CPAP machine nightly; he is not on home O2 during the day when awake. He and his do report chronic fatigue; sleeps throughout most of the day. ABG revealed hypoxia on 4 L/min; improved on 6 L/min via nasal cannula. Patient continues to have dyspnea at rest, now with a productive cough. Otherwise, he reports that he is feeling better. He denies fever, chills, chest pain, palpitations, dyspnea, abdominal pain, nausea vomiting and diarrhea. Patient and asked about option for short-term rehab; no other questions at this time. . No concerns per nursing. Reason For Visit: GENERALIZED WEAKNESS,ATAXIA Physical Exam Vital Signs: Temp Pulse Resp BP Pulse Ox 98.3 F 81 16 138/83 H 89 L 02/10/19 11:48 02/10/19 15:55 02/10/19 15:55 02/10/19 11:48 02/10/19 15:55 Intake & Output 02/09/19 02/10/19 02/11/19 06:59 06:59 06:59 Intake Total 720 Balance 720 Weight 97.9 kg 99 kg General appearance: PRESENT: no acute distress, cooperative, obese, well- developed, well-nourished Head exam: PRESENT: atraumatic, normocephalic Eye exam: PRESENT: conjunctiva pink, EOMI, PERRLA. ABSENT: scleral icterus Ear exam: PRESENT: normal external ear exam Mouth exam: PRESENT: moist, tongue midline Neck exam: ABSENT: carotid bruit, JVD, lymphadenopathy, thyromegaly Respiratory exam: PRESENT: clear to auscultation taina, decreased breath sounds - Bibasilar, prolonged expiratory phas, symmetrical, unlabored, other - Supplemental oxygen via nasal cannula. ABSENT: rales, wheezes Cardiovascular exam: PRESENT: RRR, +S1, +S2. ABSENT: diastolic murmur, rubs, systolic murmur Pulses: PRESENT: normal dorsalis pedis pul Vascular exam: PRESENT: normal capillary refill GI/Abdominal exam: PRESENT: normal bowel sounds, soft. ABSENT: distended, guarding, mass, organolmegaly, rebound, tenderness Rectal exam: PRESENT: deferred Extremities exam: PRESENT: full ROM. ABSENT: calf tenderness, clubbing, pedal edema Neurological exam: PRESENT: alert, awake, oriented to person, oriented to place, oriented to time, oriented to situation, CN II-XII grossly intact. ABSENT: motor sensory deficit Psychiatric exam: PRESENT: appropriate affect, normal mood. ABSENT: homicidal ideation, suicidal ideation Skin exam: PRESENT: dry, intact, warm. ABSENT: cyanosis, rash Results Laboratory Results: 02/09/19 04:59 02/10/19 03:59 02/09/19 02/10/19 02/10/19 18:47 03:59 15:03 Carbonic Acid 1.15 1.19 HCO3/H2CO3 Ratio 21:1 20:1 ABG pH 7.42 7.42 ABG pCO2 38.1 39.4 ABG pO2 48.5 L 62.8 L ABG HCO3 24.4 H 24.8 H ABG O2 Saturation 85.3 L 92.5 L ABG Base Excess 0.3 0.4 FiO2 4L 5 L Sodium 135.1 L Potassium 4.2 Chloride 100 Carbon Dioxide 23 Anion Gap 12 BUN 15 Creatinine 0.93 Est GFR ( Amer) > 60 Glucose 102 Calcium 9.5 Vitamin B12 519.0 02/08/19 02/08/19 02/08/19 13:20 13:20 22:45 Creatine Kinase 30 L 21 L CK-MB (CK-2) < 0.22 Troponin I < 0.012 NT-Pro-B Natriuret Pep 02/08/19 02/09/19 02/09/19 22:45 04:59 04:59 Creatine Kinase 25 L CK-MB (CK-2) < 0.22 < 0.22 Troponin I < 0.012 < 0.012 NT-Pro-B Natriuret Pep 02/09/19 02/09/19 02/10/19 12:29 12:29 15:43 Creatine Kinase 32 L CK-MB (CK-2) < 0.22 Troponin I < 0.012 NT-Pro-B Natriuret Pep 94 Impressions: Head CT 02/08/19 16:54 IMPRESSION: MICROVASCULAR ISCHEMIA AND GENERALIZED ATROPHY. NO ACUTE IMAGING FINDINGS IN THE BRAIN. MILD SINUS DISEASE. EVIDENCE OF ACUTE STROKE: NO. Chest X-Ray 02/10/19 00:00 IMPRESSION: Increased diffuse bilateral interstitial opacities. Findings may represent edema, atypical infection or possibly fibrotic change. CT could be c onsidered for further characterization. Lung Scan-VQ NM 02/10/19 00:00 IMPRESSION: No mismatched perfusion defect to suggest pulmonary embolus (low probability). Assessment and Plan - Diagnosis (1) Acute and chronic respiratory failure with hypoxia Is this a current diagnosis for this admission?: Yes Plan: Unclear etiology; complicated by COPD. Patient requires 4 L via nasal cannula when utilizing CPAP for JODIE nightly. Otherwise he is not home O2 dependent. It does not appear that he takes maintenance medications for his COPD. ABG demonstrated hypoxia on his baseline oxygen requirement; supplemental O2 increased to 6 L/min continuously via nasal cannula. Follow-up ABG shows resolution of hypoxia. Patient has had multiple abnormal chest x-rays with recommendations for CT follow-up. D-dimer was elevated; VQ scan was negative. CT of the chest with contrast pending; patient does have a history of pulmonary nodules, severe hemoptysis (unknown cause; patient's is unable to provide detailed history, although, he did require intubation and bronchoscopy), and tobacco use. Continue supplemental oxygen to maintain oxygen saturations greater than 89%. CPAP nightly. Scheduled as needed nebulizer treatments. Sputum culture pending. Patient has a normal WBC, is afebrile, and does not appear acutely ill; will hold on antibiotic treatment at this time. No history of CHF, d-dimer is negative, no crackles on exam, no peripheral edema; does not appear to be in acute CHF exacerbation. Although, may consider echocardiogram to evaluate for pulmonary hypertension. (2) Ambulatory dysfunction Is this a current diagnosis for this admission?: Yes Plan: Unclear etiology. Perhaps r/t COPD/chronic respiratory failure. Although labs and vital signs are overall reassuring, the patient does appear somewhat dehydrated on exam. There is no indication of CHF in CXR or laboratory work-up. Troponins are negative x4. Thyroid panel is acceptable. Urinalysis is negative. ABG reveals hypoxia; perhaps source of his chronic fatigue. Will provide gentle IV fluids. Orthostatic vital signs every shift. Have decreased Depakote (no history of seizures per patient or in records; likely on Depakote for mood stability related to vascular dementia). Fall precautions. PT/OT consultation. Discharge planning is consulted; patient indicates he would like to be discharged home with home health services. (3) Multiple falls Is this a current diagnosis for this admission?: Yes Plan: Unclear etiology. Evaluation management as above. (4) Diabetes mellitus type 2 in nonobese Is this a current diagnosis for this admission?: Yes Plan: Hemoglobin A1c 6.0%. Consistent carb/cardiac diet. Hold home dose metformin. Accu-Cheks before meals and at bedtime with sliding scale insulin for coverage. Hypoglycemia protocol in place. Given the patient's age and life expectancy, it would not be unreasonable to consider an A1c goal of less than 8.5; which case, his home dose metformin could be decreased to once daily. It is possible that his weakness and ambulatory dysfunction may be related to borderline low blood sugars. (5) Stage 3 severe COPD by GOLD classification Is this a current diagnosis for this admission?: Yes Plan: ABG reveals hypoxia without hypercapnia. There are diminished but otherwise clear. Stable and not in acute exacerbation at this time. Continue supplemental oxygen to maintain saturations greater than 89%. Continue scheduled and as needed nebulizer treatments. No indications for antibiotic or steroid therapy at this time. (6) Vascular dementia Qualifiers: Dementia behavioral disturbance: without behavioral disturbance Qualified Code(s): F01.50 - Vascular dementia without behavioral disturbance Is this a current diagnosis for this admission?: Yes Plan: Supportive care. Decreasing Depakote slightly today from 250 mg twice daily (500 mg daily) 125 mg 3 times daily to (375 mg daily) related to generalized weakness since fatigue. Fall precautions. (7) Hyperlipidemia Qualifiers: Hyperlipidemia type: unspecified Qualified Code(s): E78.5 - Hyperlipidemia, unspecified Is this a current diagnosis for this admission?: Yes Plan: Cardiac diet. (8) Hypertension Qualifiers: Hypertension type: essential hypertension Qualified Code(s): I10 - Essential (primary) hypertension Is this a current diagnosis for this admission?: Yes Plan: Normotensive blood pressures. Obtaining orthostatic vital signs each shift. Continue home dose losartan. Cardiac diet. (9) JODIE (obstructive sleep apnea) Is this a current diagnosis for this admission?: Yes Plan: CPAP nightly. (10) Benign prostatic hyperplasia Qualifiers: Lower urinary tract symptom presence: symptoms absent Qualified Code(s): N40.0 - Benign prostatic hyperplasia without lower urinary tract symptoms Is this a current diagnosis for this admission?: Yes Plan: Continue home dose Flomax. - Time Time Spent with patient: 35 or more minutes Medications reviewed and adjusted accordingly: Yes Anticipated discharge: SNF - Short-term rehab.
--- NOTE | 2019-02-10 18:05 | RADIOLOGY REPORT (SQ) ---
EXAM DESCRIPTION: CT CHEST WITH COMPLETED DATE/TIME: 02/10/2019 5:16 pm REASON FOR STUDY: dyspnea, hypoxia, abn CXR, Hx tobacco I50.89 OTHER HEART FAILURE J96.21 ACUTE AN D CHRONIC RESPIRATORY FAILURE WITH HYPOXIA COMPARISON: None. TECHNIQUE: CT scan of the chest performed using helical scanning technique with dynamic intravenous contrast injection. Images reviewed with lung, soft tissue and bone windows. Reconstructed coronal and sagittal MPR and MIP images reviewed. All images stored on PACS. All CT scanners at this facility use dose modulation, iterative reconstruction, and/or weight based d osing when appropriate to reduce radiation dose to as low as reasonably achievable (ALARA). [facility]: Dose Right [facility]: CareDose [facility]: Dose Right [facility]: Teradose 4D [facility]: Revl CONTRAST TYPE AND DOSE: contrast/concentration: Isovue 350.00 mg/ml; Total Contrast Delivered: 80.0 ml; Total Saline Delivered: 22.1 ml RENAL FUNCTION: BUN 15 creatinine 0.93 RADIATION DOSE: CT Rad equipment meets quality standard of care and radiation dose reduction techniq ues were employed. CTDIvol: 15.2 mGy. DLP: 566 mGy-cm. . LIMITATIONS: None. FINDINGS: LUNGS AND PLEURA: Mild, relatively diffuse ground-glass infiltrates. No focal infiltrate. No pleural effusion. No mass. HILAR AND MEDIASTINAL STRUCTURES: No identified masses or abnormal nodes. HEART AND VASCULAR STRUCTURES: No aneurysm or dissection. No central pulmonary emboli. No pericardi al effusion. HARDWARE: None in the chest. UPPER ABDOMEN: Hepatic hypo attenuation. THYROID AND OTHER SOFT TISSUES: No masses. No adenopathy. BONES: No significant finding. OTHER: No other significant finding. IMPRESSION: Ground-glass infiltrates suggesting mild interstitial edema. Hepatic steatosis. TECHNICAL DOCUMENTATION: JOB ID: [id number] Quality ID # [id number]: Final reports with documentation of one or more dose reduction techniques (e.g., Au tomated exposure control, adjustment of the mA and/or kV according to patient size, use of iterative reconstruction technique) 2010 [employer]- All Rights Reserved Reading location - IP/workstation name: [email or web address]
[2019-02-11] MEDS: IPRATROPIUM BROMIDE 0.02% NEB 0.5 MG/2.5 ML AMPUL NEB SCH ×3 (00:01→15:47)
[2019-02-11] MEDS: LEVALBUTEROL HCL NEB 1.25 MG/3 ML AMPUL NEB SCH ×3 (00:01→15:47)
[2019-02-11] MEDS: HEPARIN SOD (PORCINE) 5,000 UNIT/ML 1 ML VIAL SUBCUT SCH ×3 (05:52→21:38)
[2019-02-11] MEDS: BUDESONIDE NEB 0.5 MG/2 ML AMPUL NEB SCH ×2 (07:30→19:58)
[2019-02-11] MEDS: INSULIN REG, HUMAN 100 UNIT/ML 3 ML VIAL (PYX) SUBCUT SCH ×4 (09:33→21:39)
[2019-02-11] MEDS: LOSARTAN POTASSIUM 50 MG TABLET PO SCH ×2 (09:49→18:09)
[2019-02-11] MEDS: TAMSULOSIN HCL 0.4 MG CAP.SR.24H PO SCH (09:49)
[2019-02-11] MEDS: DOCUSATE SODIUM 100 MG CAPSULE PO SCH ×2 (09:49→18:09)
[2019-02-11] MEDS: DULOXETINE HCL 30 MG CAPSULE.DR PO SCH ×2 (09:50→21:39)
[2019-02-11] MEDS: CHOLECALCIFEROL (D3) 1,000 UNIT (25 MCG) TABLET PO SCH (09:50)
[2019-02-11] MEDS: ASPIRIN 81 MG TABLET, CHEWABLE PO SCH (09:54)
[2019-02-11] MEDS: DIVALPROEX SODIUM 125 MG CAP.SPRINK PO SCH ×2 (09:57→21:39)
[2019-02-11] MEDS: PREDNISONE 20 MG TABLET PO SCH ×2 (09:57→18:10)
--- NOTE | 2019-02-11 15:24 | PDOC PROGRESS REPORT ---
Subjective Progress Note for:: 02/11/19 Subjective:: The patient is a 73-year-old male with a past medical history of hypertension, COPD, asthma, chronic respiratory failure (4 L via nasal cannula), vascular dementia, DM 2, BPH, depression and tobacco dependency who was admitted 02/08/2019 for generalized weakness resulting in ambulatory dysfunction and multiple falls. Patient was seen on morning rounds. He is done resting in bed comfortably on supplemental oxygen by nasal cannula at 5 L/min. The patient utilizes 4 L/min with CPAP machine nightly; he is not on home O2 during the day when awake. Patient continues to have dyspnea at rest fatigue/daytime sleepiness, and generalized weakness. Otherwise he feels well and has no complaints., He specifically denies fever, chills, chest pain, palpitations, orthopnea, abdominal pain, nausea vomiting and diarrhea. He has no questions or concerns at this time. No concerns per nursing. Reason For Visit: ACUTE AND CHRONIC RESPIRATORY FAILURE WITH HYPOXIA Physical Exam Vital Signs: Temp Pulse Resp BP Pulse Ox 97.8 F 91 17 165/85 H 95 02/11/19 08:07 02/11/19 08:07 02/11/19 08:07 02/11/19 08:07 02/11/19 08:07 Intake & Output 02/10/19 02/11/19 02/12/19 06:59 06:59 06:59 Intake Total 720 360 360 Output Total 200 Balance 720 160 360 Weight 99 kg 96.8 kg General appearance: PRESENT: no acute distress, cooperative, obese, well- developed, well-nourished Head exam: PRESENT: atraumatic, normocephalic Eye exam: PRESENT: conjunctiva pink, EOMI, PERRLA. ABSENT: scleral icterus Ear exam: PRESENT: normal external ear exam Mouth exam: PRESENT: moist, tongue midline Neck exam: ABSENT: carotid bruit, JVD, lymphadenopathy, thyromegaly Respiratory exam: PRESENT: clear to auscultation taina, decreased breath sounds - Bibasilar, symmetrical, unlabored, other - Supplemental oxygen 5 L/min. ABSENT: rales, rhonchi, wheezes Cardiovascular exam: PRESENT: RRR, +S1, +S2. ABSENT: diastolic murmur, rubs, systolic murmur Pulses: PRESENT: normal dorsalis pedis pul Vascular exam: PRESENT: normal capillary refill GI/Abdominal exam: PRESENT: normal bowel sounds, soft. ABSENT: distended, guarding, mass, organolmegaly, rebound, tenderness Rectal exam: PRESENT: deferred Extremities exam: PRESENT: full ROM. ABSENT: calf tenderness, clubbing, pedal edema Neurological exam: PRESENT: alert, awake, oriented to person, oriented to place, oriented to time, oriented to situation, CN II-XII grossly intact. ABSENT: motor sensory deficit Psychiatric exam: PRESENT: appropriate affect, normal mood. ABSENT: homicidal ideation, suicidal ideation Skin exam: PRESENT: dry, intact, warm. ABSENT: cyanosis, rash Results Laboratory Results: 02/09/19 04:59 02/10/19 03:59 02/10/19 02/11/19 15:03 05:43 Carbonic Acid 1.19 HCO3/H2CO3 Ratio 20:1 ABG pH 7.42 ABG pCO2 39.4 ABG pO2 62.8 L ABG HCO3 24.8 H ABG O2 Saturation 92.5 L ABG Base Excess 0.4 FiO2 5 L C-Reactive Protein 59.4 H 02/08/19 02/08/19 02/08/19 13:20 13:20 22:45 Creatine Kinase 30 L 21 L CK-MB (CK-2) < 0.22 Troponin I < 0.012 NT-Pro-B Natriuret Pep 02/08/19 02/09/19 02/09/19 22:45 04:59 04:59 Creatine Kinase 25 L CK-MB (CK-2) < 0.22 < 0.22 Troponin I < 0.012 < 0.012 NT-Pro-B Natriuret Pep 02/09/19 02/09/19 02/10/19 12:29 12:29 15:43 Creatine Kinase 32 L CK-MB (CK-2) < 0.22 Troponin I < 0.012 NT-Pro-B Natriuret Pep 94 Impressions: Head CT 02/08/19 16:54 IMPRESSION: MICROVASCULAR ISCHEMIA AND GENERALIZED ATROPHY. NO ACUTE IMAGING FINDINGS IN THE BRAIN. MILD SINUS DISEASE. EVIDENCE OF ACUTE STROKE: NO. Chest CT 02/10/19 00:00 IMPRESSION: Ground-glass infiltrates suggesting mild interstitial edema. Hepatic steatosis. Chest X-Ray 02/10/19 00:00 IMPRESSION: Increased diffuse bilateral interstitial opacities. Findings may represent edema, atypical infection or possibly fibrotic change. CT could be considered for further characterization. Lung Scan-VQ NM 02/10/19 00:00 IMPRESSION: No mismatched perfusion defect to suggest pulmonary embolus (low pr obability). Assessment and Plan - Diagnosis (1) Acute and chronic respiratory failure with hypoxia Is this a current diagnosis for this admission?: Yes Plan: Unclear etiology; complicated by COPD. Possibly related to undiagnosed CHF/pulmonary hypertension. At baseline, patient requires 4 L via nasal cannula when utilizing CPAP for JODIE nightly. Otherwise he is not home O2 dependent. It does not appear that he takes maintenance medications for his COPD. ABG demonstrated hypoxia on his baseline oxygen requirement; supplemental O2 increased to 6 L/min continuously via nasal cannula. Follow-up ABG shows resolution of hypoxia. Patient has had multiple abnormal chest x-rays with recommendations for CT follow-up. D-dimer was elevated; VQ scan was negative. Chest CT demonstrated mild, diffuse, groundglass opacities. Echocardiogram pen to evaluate for pulmonary hypertension is pending. Ding Continue supplemental oxygen to maintain oxygen saturations greater than 89%. CPAP nightly. Scheduled as needed nebulizer treatments. Sputum culture pending. Patient has a normal WBC, is afebrile, and does not appear acutely ill; will hold on antibiotic treatment at this time. Given patient's history of asthma; will start on low-dose prednisone. Discussed with Dr. Valverde today. Vital signs, laboratory, imaging results reviewed with Dr. Valverde. CT demonstrates prominent pulmonary artery; may suggest pulmonary hypertension. We will provide IV furosemide 20 mg twice daily x3 doses and observe for improved respiratory status. Monitor creatinine closely. (2) Ambulatory dysfunction Is this a current diagnosis for this admission?: Yes Plan: Unclear etiology. Perhaps r/t COPD/chronic respiratory failure, hypoglycemia. Eval for CHF. Troponins are negative x4. Thyroid panel is acceptable. Urinalysis is negative. ABG reveals hypoxia; perhaps source of his chronic fatigue. Have decreased Depakote (no history of seizures per patient or in records; likely on Depakote for mood stability related to vascular dementia). Fall precautions. PT/OT consultation. Discharge planning is consulted; patient indicates he would like to be discharged home with home health services. (3) Multiple falls Is this a current diagnosis for this admission?: Yes Plan: Unclear etiology. Evaluation management as above. (4) Diabetes mellitus type 2 in nonobese Is this a current diagnosis for this admission?: Yes Plan: Hemoglobin A1c 6.0%. Consistent carb/cardiac diet. Hold home dose metformin. Accu-Cheks before meals and at bedtime with sliding scale insulin for coverage. Hypoglycemia protocol in place. Given the patient's age and life expectancy, it would not be unreasonable to consider an A1c goal of less than 8.5; recommend his home dose metformin could be decreased to once daily. It is possible that his weakness and ambulatory dysfunction may be related to borderline low blood sugars. (5) Stage 3 severe COPD by GOLD classification Is this a current diagnosis for this admission?: Yes Plan: ABG reveals hypoxia without hypercapnia. There are diminished but otherwise clear. Stable and not in acute exacerbation at this time. Continue supplemental oxygen to maintain saturations greater than 89%. Continue scheduled and as needed nebulizer treatments. p.o prednisone (6) Vascular dementia Qualifiers: Dementia behavioral disturbance: without behavioral disturbance Qualified Code(s): F01.50 - Vascular dementia without behavioral disturbance Is this a current diagnosis for this admission?: Yes Plan: Supportive care. Decreasing Depakote slightly today from 250 mg twice daily (500 mg daily) 125 mg 3 times daily to (375 mg daily) related to generalized weakness since fatigue. Fall precautions. (7) Hyperlipidemia Qualifiers: Hyperlipidemia type: unspecified Qualified Code(s): E78.5 - Hyperlipidemia, unspecified Is this a current diagnosis for this admission?: Yes Plan: Cardiac diet. (8) Hypertension Qualifiers: Hypertension type: essential hypertension Qualified Code(s): I10 - Essential (primary) hypertension Is this a current diagnosis for this admission?: Yes Plan: Normotensive blood pressures. Continue home dose losartan. Cardiac diet. (9) JODIE (obstructive sleep apnea) Is this a current diagnosis for this admission?: Yes Plan: CPAP nightly. (10) Benign prostatic hyperplasia Qualifiers: Lower urinary tract symptom presence: symptoms absent Qualified Code(s): N40.0 - Benign prostatic hyperplasia without lower urinary tract symptoms Is this a current diagnosis for this admission?: Yes Plan: Continue home dose Flomax. - Time Time Spent with patient: 35 or more minutes Medications reviewed and adjusted accordingly: Yes Anticipated discharge: SNF - Patient would benefit from short term rehab; anticipate he will require less than 30 days of rehab. Within: within 72 hours
[2019-02-11] MEDS: FUROSEMIDE INJ/PF 20 MG/2 ML SDV IV SCH (21:38)
--- NOTE | 2019-02-11 22:16 | XCELERA REPORT ---
[address] [address] Transthoracic Echocardiogram Report Name: KEYLA TORSTEN LAINEZ Age: 73 yrs Gender: Male : 1945 Patient Status: Inpatient Patient Location: [address] [place] [address] Study Date: 02/11/2019 07:24 PM Height: 69 in Weight: 213 lb BSA: 2.1 m2 Procedure: A two-dimensional transthoracic echocardiogram with color flow and Doppler was performed. Study Quality: Poor. Reason For Study: dyspnea/hypoxia; CHFPulm HTN History: dyspnea/hypoxia; CHFPulm HTN. Ordering Physician: ANGELA SOLARES Performed By: Rosario East Interpretation Summary The left ventricle is normal in size. There is normal left ventricular wall thickness. LV EF is > than 60% Left ventricular systolic function is normal. Doppler measurements suggest impaired left ventricular relaxation, which is associated with grade I/IV or mild diastolic dysfunction The left ventricular wall motion is normal. Cannot assess for ASD ,VSD ,or PFO The right ventricle is not well visualized secondary to technical limitations Right atrium not well visualized secondary to technical limitations The left atrial size is normal. There is no evidence of mitral valve prolapse. There is no vegetation seen on the mitral valve. There is no mitral valve stenosis. There is a trace amount of mitral regurgitation There is no aortic valvular vegetation. There is no aortic valve stenosis No aortic regurgitation is present. There is no tricuspid stenosis. There is a trace amount of tricuspid regurgitation RVSP is 37 mm of Hg , with RA mean of 10. The aortic root is not well visualized but is probably normal size. The inferior vena cava was not visualized There is no pericardial effusion. MMode/2D Measurements & Calculations RVDd: 2.3 cm LVIDd: 4.4 cm FS: 30.5 % Ao root diam: 3.1 cm IVSd: 1.1 cm LVIDs: 3.0 cm EDV(Teich): Ao root area: LVPWd: 1.0 cm 86.0 ml 7.5 cm2 ESV(Teich): LA dimension: 2.4 cm 36.0 ml EF(Teich): 58.1 % LVLd ap4: 6.2 cm SV(MOD-sp4): EDV(MOD-sp4): 37.0 ml 52.0 ml LVLs ap4: 5.1 cm ESV(MOD-sp4): 15.0 ml EF(MOD-sp4): 71.2 % Doppler Measurements & Calculations MV E max asiya: MV P1/2t max asiya: Ao V2 max: LV V1 max P.6 cm/sec 79.5 cm/sec 122.2 cm/sec 3.8 mmHg MV A max asiya: MV P1/2t: 54.0 msec Ao max P.0 mmHg LV V1 max: 87.9 cm/sec MVA(P1/2t): 4.1 cm2 97.2 cm/sec MV E/A: 0.83 MV dec slope: 431.2 cm/sec2 MV dec time: 0.20 sec PA V2 max: TR max asiya: MV P1/2t-pr_phl: 99.1 cm/sec 257.9 cm/sec 54.0 msec PA max PG: TR max P.6 mmHg 3.9 mmHg Left Ventricle The left ventricle is normal in size. There is normal left ventricular wall thickness. LV EF is > than 60%. Left ventricular systolic function is normal. Doppler measurements suggest impaired left ventricular relaxation, which is associated with grade I/IV or mild diastolic dysfunction. The left ventricular wall motion is normal. Cannot assess for ASD ,VSD ,or PFO. Right Ventricle The right ventricle is not well visualized secondary to technical limitations. Atria Right atrium not well visualized secondary to technical limitations. The left atrial size is normal. Mitral Valve There is no evidence of mitral valve prolapse. There is no vegetation seen on the mitral valve. There is no mitral valve stenosis. There is a trace amount of mitral regurgitation. Aortic Valve There is no aortic valvular vegetation. There is no aortic valve stenosis. No aortic regurgitation is present. Tricuspid Valve There is no tricuspid stenosis. There is a trace amount of tricuspid regurgitation. RVSP is 37 mm of Hg , with RA mean of 10. Pulmonic Valve The pulmonic valve is not well visualized. Great Vessels The aortic root is not well visualized but is probably normal size. The inferior vena cava was not visualized. Effusions There is no pericardial effusion. : ANGELA SOLARES Lakshmi
[2019-02-12] MEDS: IPRATROPIUM BROMIDE 0.02% NEB 0.5 MG/2.5 ML AMPUL NEB SCH ×3 (00:19→16:26)
[2019-02-12] MEDS: LEVALBUTEROL HCL NEB 1.25 MG/3 ML AMPUL NEB SCH ×3 (00:19→16:26)
[2019-02-12] MEDS: HEPARIN SOD (PORCINE) 5,000 UNIT/ML 1 ML VIAL SUBCUT SCH ×3 (05:23→21:44)
[2019-02-12 05:43] LABS: HEMATOCRIT 49.7 % (37.9-51.0); HEMOGLOBIN 16.7 g/dL (13.5-17.0); MEAN CORPUSCULAR HEMOGLOBIN 29.9 pg (27.0-33.4); MEAN CORPUSCULAR HGB CONC 33.6 g/dL (32.0-36.0); MEAN CORPUSCULAR VOLUME 89 fl (80-97); PLATELET COUNT 210 10^3/uL (150-450); RED BLOOD COUNT 5.58 10^6/uL (4.35-5.55); RED CELL DISTRIBUTION WIDTH 14.2 % (11.5-14.0); WHITE BLOOD COUNT 6.4 10^3/uL (4.0-10.5)
[2019-02-12 06:05] LABS: ANION GAP 10 (5-19); BLOOD UREA NITROGEN 18 mg/dL (7-20); CALCIUM 10.2 mg/dL (8.4-10.2); CARBON DIOXIDE 25 mmol/L (22-30); CHLORIDE 101 mmol/L (98-107); GLUCOSE 127 mg/dL (75-110); POTASSIUM 4.7 mmol/L (3.6-5.0)
[2019-02-12] MEDS: BUDESONIDE NEB 0.5 MG/2 ML AMPUL NEB SCH ×2 (08:17→20:38)
[2019-02-12] MEDS: INSULIN REG, HUMAN 100 UNIT/ML 3 ML VIAL (PYX) SUBCUT SCH ×4 (10:18→21:23)
[2019-02-12] MEDS: DOCUSATE SODIUM 100 MG CAPSULE PO SCH ×2 (10:24→17:22)
[2019-02-12] MEDS: TAMSULOSIN HCL 0.4 MG CAP.SR.24H PO SCH (10:24)
[2019-02-12] MEDS: ASPIRIN 81 MG TABLET, CHEWABLE PO SCH (10:24)
[2019-02-12] MEDS: LOSARTAN POTASSIUM 50 MG TABLET PO SCH ×2 (10:24→17:22)
[2019-02-12] MEDS: DULOXETINE HCL 30 MG CAPSULE.DR PO SCH ×2 (10:24→21:44)
[2019-02-12] MEDS: FUROSEMIDE INJ/PF 20 MG/2 ML SDV IV SCH ×2 (10:25→21:44)
[2019-02-12] MEDS: PREDNISONE 20 MG TABLET PO SCH ×2 (10:25→17:22)
[2019-02-12] MEDS: CHOLECALCIFEROL (D3) 1,000 UNIT (25 MCG) TABLET PO SCH (10:25)
[2019-02-12] MEDS: DIVALPROEX SODIUM 125 MG CAP.SPRINK PO SCH ×2 (10:50→21:45)
--- NOTE | 2019-02-12 14:07 | PDOC TRANSFER SUMMARY ---
Impression - Admit/DC Date/PCP Admission Date/Primary Care Provider: 02/10/19 16:29 BARTOLO REAL MD Discharge Date: 02/12/19 - Discharge Diagnosis (1) Acute and chronic respiratory failure with hypoxia Is this a current diagnosis for this admission?: Yes (2) Ambulatory dysfunction Is this a current diagnosis for this admission?: Yes (3) Multiple falls Is this a current diagnosis for this admission?: Yes (4) Diabetes mellitus type 2 in nonobese Is this a current diagnosis for this admission?: Yes (5) Stage 3 severe COPD by GOLD classification Is this a current diagnosis for this admission?: Yes (6) Vascular dementia Is this a current diagnosis for this admission?: Yes (7) Hyperlipidemia Is this a current diagnosis for this admission?: Yes (8) Hypertension Is this a current diagnosis for this admission?: Yes (9) JODIE (obstructive sleep apnea) Is this a current diagnosis for this admission?: Yes (10) Benign prostatic hyperplasia Is this a current diagnosis for this admission?: Yes - Additional Information Resuscitation Status: Full Code Discharge Diet: Cardiac Discharge Activity: Activity As Tolerated, Balance Activity w/Rest, Slowly Increase Activity, Supervised Activity Referrals: BARTOLO REAL MD [Primary Care Provider] - Follow up as needed CRISTOBAL VALVERDE MD [ACTIVE STAFF] - (Within 2-4 weeks to establish care.) Prescriptions: Albuterol Sulfate [Albuterol Sulfate Hfa] 8.5 gm IH Q4HP PRN #1 hfa.[email or web address] PRN Reason: Carvedilol [Coreg 6.25 mg Tablet] 6.25 mg PO Q12 #60 tablet Prednisone [Deltasone 20 mg Tablet] 60 mg PO DAILY #12 tablet Divalproex Sodium [Depakote Sprinkle 125 mg Capsule] 125 mg PO Q12 #90 cap.sprink Metformin HCl 500 mg PO DAILY #30 Albuterol Sulfate [Ventolin 0.083% Neb 2.5 mg/3 mL Ampul] 1 vial NEB Q4HP PRN #30 vial PRN Reason: Home Medications: Duloxetine HCl 30 mg PO BID 01/19/16 Losartan Potassium 50 mg PO BID 01/19/16 Tamsulosin HCl 0.4 mg PO BID 01/19/16 Aspirin [Bryce Chewable Aspirin] 81 mg PO DAILY 02/08/19 Cholecalciferol (Vitamin D3) [Vitamin D3] 50,000 unit PO Q7D 02/08/19 Acetaminophen [Tylenol 325 mg Tablet] 650 mg PO Q4HP PRN tablet 02/12/19 Albuterol Sulfate [Albuterol Sulfate Hfa] 8.5 gm IH Q4HP PRN #1 hfa.aer.ad 02/12/19 Albuterol Sulfate [Ventolin 0.083% Neb 2.5 mg/3 mL Ampul] 1 vial NEB Q4HP PRN #30 vial 02/12/19 Carvedilol [Coreg 6.25 mg Tablet] 6.25 mg PO Q12 #60 tablet 02/12/19 Divalproex Sodium [Depakote Sprinkle 125 mg Capsule] 125 mg PO Q12 #90 ca p.sprink 02/12/19 Docusate Sodium [Colace 100 mg Capsule] 100 mg PO BID capsule 02/12/19 Metformin HCl 500 mg PO DAILY #30 02/12/19 Prednisone [Deltasone 20 mg Tablet] 60 mg PO DAILY #12 tablet 02/12/19 History of Present Illiness History of Present Illness: Per H&P by Dr. Baez: TORSTEN RAMIRES JR is a 73 year old male who presents the emergency room via EMS with a one-week history of weakness. The patient has dementia and is unable to contribute to his historical database. His indicates that for the last week he has been progressively weaker having sustained several falls over the course of the week for times requiring EMS to come to the house and assist in getting him up. The patient has COPD and is on 4 L of oxygen on a continuous basis and uses a walker to support him in ambulation. His expresses her concern that his weakness has become so severe over the last week. She denies any observed accompanying or associated signs or symptoms. She admits prior similar episodes of falls but this is a new increased frequency of falling and new progressive weakness. She has not identified any aggravating or ameliorating factors for his weakness. In the emergency room patient was found to have an unremarkable evaluation with findings typical of vascular dementia on his CT scan of the head and no unexpected laboratory findings. He was subsequently admitted to the hospital for further evaluation and treatment and consideration for possible post hospital snf placement. Hospital Course Hospital Course: The patient was admitted to [facility] on continuous cardiac telemetry. Extensive work-up completed to evaluate patient's chronic respiratory failure with hypoxia resulting in need for supplemental oxygen at 5 to 6 L/min continuous use to maintain saturations. ABG demonstrated hypoxia on his baseline oxygen requirement; supplemental O2 increased to 6 L/min continuously via nasal cannula. Follow-up ABG shows resolution of hypoxia. Patient has had multiple abnormal chest x-rays with recommendations for CT follow-up. D-dimer was elevated; VQ scan was negative. Chest CT demonstrated mild, diffuse, groundglass opacities. Echocardiogram demonstrated LVEF greater than 60% with mild diastolic dysfunction. Echocardiogram was technically limited; unable to assess for ASD, VSD, or PFO and to the right atrium and ventricle were not well visualized. Discussed with Dr. Valverde, pulmonology. Vital signs, laboratory, imaging results reviewed with Dr. Valverde. CT demonstrates prominent pulmonary artery; may suggest pulmonary hypertension. Laboratory evaluation including thyroid panel, urinalysis, A1c, a.m. cortisol, and serial troponins were all reassuring. The patient's generalized weakness/ambulatory dysfunction was evaluated as above. Additionally his Depakote dosing was decreased (on medication for mood stability related to dementia), and metformin was decreased to once daily as the patient's A1c is 6.0% and given the patient's age and life expectancy it is not unreasonable to consider an A1c goal of less than 8.5%. The patient met with PT/OT services with recommendations for continued rehab services. Patient and family are interested in short term rehab services. Fortunately, [facility] has offered a room. The patient is discharged in stable condition on supplemental oxygen at 5 lpm continuous use and CPAP at night. He is advised to follow up with your primary care provider within 1 week. He is recommended to establish with a local heel sprayer first, Dr. Valverde, within 2-4 weeks for further evaluation and management of his chronic respiratory failure. Take medications as prescribed. Return to the emergency department as needed for concerning symptoms. Physical Exam Vital Signs: Temp Pulse Resp BP Pulse Ox 97.7 F 80 16 154/94 H 96 02/12/19 08:45 02/12/19 08:45 02/12/19 08:45 02/12/19 08:45 02/12/19 08:45 Intake & Output 02/11/19 02/12/19 02/13/19 06:59 06:59 06:59 Intake Total 360 720 Output Total 200 900 Balance 160 -180 Weight 96.8 kg 95.7 kg General appearance: PRESENT: no acute distress, cooperative, obese, well- developed, well-nourished Head exam: PRESENT: atraumatic, normocephalic Eye exam: PRESENT: conjunctiva pink, EOMI, PERRLA. ABSENT: scleral icterus Ear exam: PRESENT: normal external ear exam Mouth exam: PRESENT: moist, tongue midline Neck exam: ABSENT: carotid bruit, JVD, lymphadenopathy, thyromegaly Respiratory exam: PRESENT: clear to auscultation taina, symmetrical, unlabored, other - Supplemental oxygen 5 L/min. ABSENT: rales, rhonchi, wheezes Cardiovascular exam: PRESENT: RRR. ABSENT: diastolic murmur, rubs, systolic murmur Pulses: PRESENT: normal dorsalis pedis pul Vascular exam: PRESENT: normal capillary refill GI/Abdominal exam: PRESENT: normal bowel sounds, soft. ABSENT: distended, guarding, mass, organolmegaly, rebound, tenderness Rectal exam: PRESENT: deferred Extremities exam: PRESENT: full ROM. ABSENT: calf tenderness, clubbing, pedal edema Neurological exam: PRESENT: alert, awake, oriented to person, oriented to place, oriented to time, oriented to situation, CN II-XII grossly intact. ABSENT: motor sensory deficit Psychiatric exam: PRESENT: appropriate affect, normal mood. ABSENT: homicidal ideation, suicidal ideation Skin exam: PRESENT: dry, intact, warm. ABSENT: cyanosis, rash Results Laboratory Results: WBC 6.4 10^3/uL (4.0-10.5) 02/12/19 04:40 RBC 5.58 10^6/uL (4.35-5.55) H 02/12/19 04:40 Hgb 16.7 g/dL (13.5-17.0) 02/12/19 04:40 Hct 49.7 % (37.9-51.0) 02/12/19 04:40 MCV 89 fl (80-97) 02/12/19 04:40 MCH 29.9 pg (27.0-33.4) 02/12/19 04:40 MCHC 33.6 g/dL (32.0-36.0) 02/12/19 04:40 RDW 14.2 % (11.5-14.0) H 02/12/19 04:40 Plt Count 210 10^3/uL (150-450) 02/12/19 04:40 Lymph % (Auto) 21.5 % (13-45) 02/08/19 14:20 Henry % (Auto) 13.5 % (3-13) H 02/08/19 14:20 Eos % (Auto) 6.8 % (0-6) H 02/08/19 14:20 Baso % (Auto) 0.8 % (0-2) 02/08/19 14:20 Absolute Neuts (auto) 3.4 10^3/uL (1.7-8.2) 02/08/19 14:20 Absolute Lymphs (auto) 1.3 10^3/uL (0.5-4.7) 02/08/19 14:20 Absolute Monos (auto) 0.8 10^3/uL (0.1-1.4) 02/08/19 14:20 Absolute Eos (auto) 0.4 10^3/uL (0.0-0.6) 02/08/19 14:20 Absolute Basos (auto) 0.0 10^3/uL (0.0-0.2) 02/08/19 14:20 Seg Neutrophils % 57.4 % (42-78) 02/08/19 14:20 Platelet Estimate Cancelled 02/08/19 13:20 ESR 17 mm/hr (0-20) 02/11/19 05:43 D-Dimer 0.86 ug/mL (0.00-0.50) H 02/10/19 04:03 Carbonic Acid 1.19 mmol/L (1.05-1.35) 02/10/19 15:03 HCO3/H2CO3 Ratio 20:1 02/10/19 15:03 ABG pH 7.42 (7.35-7.45) 02/10/19 15:03 ABG pCO2 39.4 mmHg (35-45) 02/10/19 15:03 ABG pO2 62.8 mmHg (80-100) L 02/10/19 15:03 ABG HCO3 24.8 mmol/L (20-24) H 02/10/19 15:03 ABG Total CO2 26.0 mmol/L (23-27) 02/10/19 15:03 ABG O2 Saturation 92.5 % (94-98) L 02/10/19 15:03 ABG Base Excess 0.4 mmol/L 02/10/19 15:03 FiO2 5 L 02/10/19 15:03 Sodium 136.2 mmol/L (137-145) L 02/12/19 04:40 Potassium 4.7 mmol/L (3.6-5.0) 02/12/19 04:40 Chloride 101 mmol/L (98-107) 02/12/19 04:40 Carbon Dioxide 25 mmol/L (22-30) 02/12/19 04:40 Anion Gap 10 (5-19) 02/12/19 04:40 BUN 18 mg/dL (7-20) 02/12/19 04:40 Creatinine 0.96 mg/dL (0.52-1.25) 02/12/19 04:40 Est GFR ( Amer) > 60 (>60) 02/12/19 04:40 Est GFR (Non-Af Amer) Cancelled 02/08/19 13:20 Est GFR (MDRD) Non-Af > 60 (>60) 02/12/19 04:40 Glucose 127 mg/dL (75-110) H 02/12/19 04:40 POC Glucose 103 mg/dL (70-110) 02/12/19 11:59 Hemoglobin A1c % 6.0 % (4.7-6.0) 02/09/19 04:59 Calcium 10.2 mg/dL (8.4-10.2) 02/12/19 04:40 Magnesium 2.1 mg/dL (1.6-2.3) 02/09/19 04:59 Total Bilirubin 0.5 mg/dL (0.2-1.3) 02/08/19 13:20 Total Bilirubin Cancelled 02/08/19 13:20 Direct Bilirubin 0.1 mg/dL (0.0-0.4) 02/08/19 13:20 Direct Bilirubin Cancelled 02/08/19 13:20 Neonat Total Bilirubin Cancelled 02/08/19 13:20 Neonat Total Bilirubin Not Reportable 02/08/19 13:20 Neonat Direct Bilirubin Cancelled 02/08/19 13:20 Neonat Direct Bilirubin Not Reportable 02/08/19 13:20 Neonat Indirect Bili Cancelled 02/08/19 13:20 Neonat Indirect Bili Not Reportable 02/08/19 13:20 AST 21 U/L (17-59) 02/08/19 13:20 AST Cancelled 02/08/19 13:20 ALT 19 U/L (<50) 02/08/19 13:20 ALT Cancelled 02/08/19 13:20 Alkaline Phosphatase 82 U/L (38-126) 02/08/19 13:20 Alkaline Phosphatase Cancelled 02/08/19 13:20 Creatine Kinase 32 U/L (55-170) L 02/09/19 12:29 CK-MB (CK-2) < 0.22 ng/mL (<4.55) 02/09/19 12:29 Troponin I < 0.012 ng/mL 02/09/19 12:29 C-Reactive Protein 59.4 mg/L (<10.0) H 02/11/19 05:43 NT-Pro-B Natriuret Pep 94 pg/mL (<450) 02/10/19 15:43 Total Protein 6.8 g/dL (6.3-8.2) 02/08/19 13:20 Total Protein Cancelled 02/08/19 13:20 Albumin 3.7 g/dL (3.5-5.0) 02/08/19 13:20 Albumin Cancelled 02/08/19 13:20 EGFR Cancelled 02/08/19 13:20 Vitamin B12 519.0 pg/mL (239-931) 02/10/19 03:59 Vitamin D 25-Hydroxy 59.9 ng/mL (14.7-68.3) 02/09/19 04:59 TSH 2.04 uIU/mL (0.47-4.68) 02/08/19 22:45 Free T4 1.04 ng/dL (0.78-2.19) 02/08/19 22:45 Free T3 pg/mL 3.53 pg/mL (2.77-5.27) 02/08/19 22:45 Cortisol AM Sample 10.80 ug/dL (4.46-22.7) 02/10/19 04:03 Urine Color YELLOW 02/08/19 19:20 Urine Appearance CLEAR 02/08/19 19:20 Urine pH 5.0 (5.0-9.0) 02/08/19 19:20 Ur Specific Reardan 1.021 02/08/19 19:20 Urine Protein NEGATIVE mg/dL (NEGATIVE) 02/08/19 19:20 Urine Glucose (UA) NEGATIVE mg/dL (NEGATIVE) 02/08/19 19:20 Urine Ketones TRACE mg/dL (NEGATIVE) H 02/08/19 19:20 Urine Blood NEGATIVE (NEGATIVE) 02/08/19 19:20 Urine Nitrite NEGATIVE (NEGATIVE) 02/08/19 19:20 Urine Bilirubin NEGATIVE (NEGATIVE) 02/08/19 19:20 Urine Urobilinogen 2.0 mg/dL (<2.0) H 02/08/19 19:20 Ur Leukocyte Esterase NEGATIVE (NEGATIVE) 02/08/19 19:20 Urine WBC (Auto) 2 /HPF 02/08/19 19:20 Urine RBC (Auto) 1 /HPF 02/08/19 19:20 Squamous Epi Cells Auto <1 /HPF 02/08/19 19:20 Urine Mucus (Auto) OCC /LPF 02/08/19 19:20 Urine Ascorbic Acid NEGATIVE (NEGATIVE) 02/08/19 19:20 Valproic Acid 34.7 ug/mL (50.0-120.0) L 02/08/19 22:45 Slides for Path Review Cancelled 02/08/19 13:20 02/08/19 02/08/19 02/09/19 13:20 22:45 04:59 CK-MB (CK-2) < 0.22 < 0.22 < 0.22 Troponin I < 0.012 < 0.012 < 0.012 NT-Pro-B Natriuret Pep 02/09/19 02/10/19 12:29 15:43 CK-MB (CK-2) < 0.22 Troponin I < 0.012 NT-Pro-B Natriuret Pep 94 Impressions: Chest X-Ray 02/08/19 16:30 IMPRESSION: Vague interstitial opacities through the lungs. Question acute versus chronic. Not present 2015. Infection/ inflammation/pulmonary fibrosis Head CT 02/08/19 16:54 IMPRESSION: MICROVASCULAR ISCHEMIA AND GENERALIZED ATROPHY. NO ACUTE IMAGING FINDINGS IN THE BRAIN. MILD SINUS DISEASE. EVIDENCE OF ACUTE STROKE: NO. Chest CT 02/10/19 00:00 IMPRESSION: Ground-glass infiltrates suggesting mild interstitial edema. Hepatic steatosis. Chest X-Ray 02/10/19 00:00 IMPRESSION: Increased diffuse bilateral interstitial opacities. Findings may represent edema, atypical infection or possibly fibrotic change. CT could be considered for further characterization. Lung Scan-VQ NM 02/10/19 00:00 IMPRESSION: No mismatched perfusion defect to suggest pulmonary embolus (low probability). Plan Plan of Treatment: Patient is discharged to SNF for short term rehab. Has received bed offer at [facility]. Follow up with your primary care provider within 1 week. Recommend establishing with Dr. Valverde, Utility Repairer (lung doctor) within 2 weeks. Take your medications as prescribed. Eat a low sodium diet. Return to the emergency department as needed for concerning symptoms. Time Spent: Greater than 30 Minutes Stroke Is this a Stroke Patient?: No Acute Heart Failure - Is this a Heart Failure Patient?: Yes Documentation of LVEF assessment?: Yes LVEF < 40%?: No- if no continue to question #3 3. Anticoagulant therapy for permanect/persistent/paraoxysmal Afib or Aflutter: N/A Follow-up Appointment scheduled within 7 days?: Yes
[2019-02-12] MEDS: CARVEDILOL 6.25 MG TABLET PO SCH (21:44)
[2019-02-13] MEDS: IPRATROPIUM BROMIDE 0.02% NEB 0.5 MG/2.5 ML AMPUL NEB SCH ×2 (00:17→08:35)
[2019-02-13] MEDS: LEVALBUTEROL HCL NEB 1.25 MG/3 ML AMPUL NEB SCH ×2 (00:17→08:34)
[2019-02-13] MEDS: HEPARIN SOD (PORCINE) 5,000 UNIT/ML 1 ML VIAL SUBCUT SCH (05:13)
[2019-02-13] MEDS: BUDESONIDE NEB 0.5 MG/2 ML AMPUL NEB SCH (08:35)
[2019-02-13] MEDS: INSULIN REG, HUMAN 100 UNIT/ML 3 ML VIAL (PYX) SUBCUT SCH ×2 (08:42→11:24)
[2019-02-13] MEDS: DULOXETINE HCL 30 MG CAPSULE.DR PO SCH (09:40)
[2019-02-13] MEDS: LOSARTAN POTASSIUM 50 MG TABLET PO SCH (09:40)
[2019-02-13] MEDS: DIVALPROEX SODIUM 125 MG CAP.SPRINK PO SCH (09:40)
[2019-02-13] MEDS: TAMSULOSIN HCL 0.4 MG CAP.SR.24H PO SCH (09:40)
[2019-02-13] MEDS: PREDNISONE 20 MG TABLET PO SCH (09:40)
[2019-02-13] MEDS: CHOLECALCIFEROL (D3) 1,000 UNIT (25 MCG) TABLET PO SCH (09:40)
[2019-02-13] MEDS: CARVEDILOL 6.25 MG TABLET PO SCH (09:40)
[2019-02-13] MEDS: DOCUSATE SODIUM 100 MG CAPSULE PO SCH (09:40)
[2019-02-13] MEDS: ASPIRIN 81 MG TABLET, CHEWABLE PO SCH (09:40)
[2019-02-13 12:06] VITALS: BP 110/75
--- NOTE | 2019-02-13 12:15 | PDOC PROGRESS REPORT ---
Subjective Progress Note for:: 02/13/19 Subjective:: The patient is a 73-year-old male with a past medical history of hypertension, COPD, asthma, chronic respiratory failure (4 L via nasal cannula), vascular dementia, DM 2, BPH, depression and tobacco dependency who was admitted 02/08/2019 for generalized weakness resulting in ambulatory dysfunction and multiple falls. Patient was seen on morning rounds. He is done resting in bed comfortably on supplemental oxygen by nasal cannula at 5 L/min. Patient reports he is feeling better this morning, slept well overnight. Looking forward to d/c to rehab today. He specifically denies fever, chills, chest pain, palpitations, dyspnea at rest, orthopnea, cough, abdominal pain, nausea vomiting and diarrhea. He reports a good appetite. He has no questions or concerns at this time. No concerns per nursing. Reason For Visit: ACUTE AND CHRONIC RESPIRATORY FAILURE WITH HYPOXIA Physical Exam Vital Signs: Temp Pulse Resp BP Pulse Ox 97.8 F 75 16 110/75 90 L 02/13/19 12:02 02/13/19 12:02 02/13/19 12:02 02/13/19 12:02 02/13/19 12:02 Intake & Output 02/12/19 02/13/19 02/14/19 06:59 06:59 06:59 Intake Total 720 Output Total 900 Balance -180 Weight 95.7 kg 95.7 kg General appearance: PRESENT: no acute distress, cooperative, obese, well- developed, well-nourished Head exam: PRESENT: atraumatic, normocephalic Eye exam: PRESENT: conjunctiva pink, EOMI, PERRLA. ABSENT: scleral icterus Mouth exam: PRESENT: moist, tongue midline Neck exam: ABSENT: carotid bruit, JVD, lymphadenopathy, thyromegaly Respiratory exam: PRESENT: clear to auscultation taina, symmetrical, unlabored, other - Supplemental oxygen 5 L/min. ABSENT: rales, rhonchi, wheezes Cardiovascular exam: PRESENT: RRR, +S1, +S2. ABSENT: diastolic murmur, rubs, systolic murmur Pulses: PRESENT: normal dorsalis pedis pul Vascular exam: PRESENT: normal capillary refill GI/Abdominal exam: PRESENT: normal bowel sounds, soft. ABSENT: distended, guarding, mass, organolmegaly, rebound, tenderness Rectal exam: PRESENT: deferred Extremities exam: PRESENT: full ROM. ABSENT: calf tenderness, clubbing, pedal edema Neurological exam: PRESENT: alert, awake, oriented to person, oriented to place, oriented to time, oriented to situation, CN II-XII grossly intact. ABSENT: motor sensory deficit Psychiatric exam: PRESENT: appropriate affect, normal mood. ABSENT: homicidal ideation, suicidal ideation Skin exam: PRESENT: dry, intact, warm. ABSENT: cyanosis, rash Results Laboratory Results: 02/12/19 04:40 02/12/19 04:40 02/08/19 02/08/19 02/08/19 13:20 13:20 22:45 Creatine Kinase 30 L 21 L CK-MB (CK-2) < 0.22 Troponin I < 0.012 NT-Pro-B Natriuret Pep 02/08/19 02/09/19 02/09/19 22:45 04:59 04:59 Creatine Kinase 25 L CK-MB (CK-2) < 0.22 < 0.22 Troponin I < 0.012 < 0.012 NT-Pro-B Natriuret Pep 02/09/19 02/09/19 02/10/19 12:29 12:29 15:43 Creatine Kinase 32 L CK-MB (CK-2) < 0.22 Troponin I < 0.012 NT-Pro-B Natriuret Pep 94 Impressions: Head CT 02/08/19 16:54 IMPRESSION: MICROVASCULAR ISCHEMIA AND GENERALIZED ATROPHY. NO ACUTE IMAGING FINDINGS IN THE BRAIN. MILD SINUS DISEASE. EVIDENCE OF ACUTE STROKE: NO. Chest CT 02/10/19 00:00 IMPRESSION: Ground-glass infiltrates suggesting mild interstitial edema. Hepatic steatosis. Chest X-Ray 02/10/19 00:00 IMPRESSION: Increased diffuse bilateral interstitial opacities. Findings may represent edema, atypical infection or possibly fibrotic change. CT could be considered for further characterization. Lung Scan-VQ NM 02/10/19 00:00 IMPRESSION: No mismatched perfusion defect to suggest pulmonary embolus (low probability). Assessment and Plan - Diagnosis (1) Acute and chronic respiratory failure with hypoxia Is this a current diagnosis for this admission?: Yes Plan: Stable. Likely at new baseline. Possibly related to undiagnosed pulmonary hypertension. Prior to admission, patient was using 4 L via nasal cannula when utilizing CPAP for JODIE nightly. Otherwise he was not home O2 dependent, though with symptoms of severe fatigue and daytime drowsiness. ABG demonstrated hypoxia on his baseline oxygen requirement; supplemental O2 increased to 6 L/min continuously via nasal cannula. Follow-up ABG shows resolution of hypoxia. Patient has had multiple abnormal chest x-rays with recommendations for CT follow-up. D-dimer was elevated; VQ scan was negative. Chest CT demonstrated mild, diffuse, groundglass opacities. Echocardiogram demonstrated LVEF greater than 60% with mild diastolic dysfunction. Echocardiogram was technically limited; unable to assess for ASD, VSD, or PFO and to the right atrium and ventricle were not well visualized. Continue supplemental oxygen to maintain oxygen saturations greater than 89%. CPAP nightly. Scheduled as needed nebulizer treatments. Continue p.o. prednisone. Recommend outpatient pulmonology follow-up. (2) Ambulatory dysfunction Is this a current diagnosis for this admission?: Yes Plan: Unclear etiology. Perhaps r/t COPD/chronic respiratory failure, hypoglycemia. Eval for CHF. Troponins are negative x4. Thyroid panel is acceptable. Urinalysis is negative. ABG reveals hypoxia; perhaps source of his chronic fatigue. Have decreased Depakote (no history of seizures per patient or in records; likely on Depakote for mood stability related to vascular dementia). Fall precautions. PT/OT consultation. Discharge planning is consulted; plan to discharge to SNF for short-term rehab today. (3) Multiple falls Is this a current diagnosis for this admission?: Yes Plan: Unclear etiology. Evaluation management as above. (4) Diabetes mellitus type 2 in nonobese Is this a current diagnosis for this admission?: Yes Plan: Hemoglobin A1c 6.0%. Consistent carb/cardiac diet. Hold home dose metformin. Accu-Cheks before meals and at bedtime with sliding scale insulin for coverage. Hypoglycemia protocol in place. Given the patient's age and life expectancy, it would not be unreasonable to consider an A1c goal of less than 8.5; recommend his home dose metformin could be decreased to once daily. It is possible that his weakness and ambulatory dysfunction may be related to borderline low blood sugars. (5) Stage 3 severe COPD by GOLD classification Is this a current diagnosis for this admission?: Yes Plan: ABG reveals hypoxia without hypercapnia. Stable and not in acute exacerbation at this time. Continue supplemental oxygen to maintain saturations greater than 89%. Continue scheduled and as needed nebulizer treatments. p.o prednisone (6) Vascular dementia Qualifiers: Dementia behavioral disturbance: without behavioral disturbance Qualified Code(s): F01.50 - Vascular dementia without behavioral disturbance Is this a current diagnosis for this admission?: Yes Plan: Supportive care. Decreasing Depakote slightly today from 250 mg twice daily (500 mg daily) 125 mg 3 times daily to (375 mg daily) related to generalized weakness since fatigue. Fall precautions. (7) Hyperlipidemia Qualifiers: Hyperlipidemia type: unspecified Qualified Code(s): E78.5 - Hyperlipidemia, unspecified Is this a current diagnosis for this admission?: Yes Plan: Cardiac diet. (8) Hypertension Qualifiers: Hypertension type: essential hypertension Qualified Code(s): I10 - Essential (primary) hypertension Is this a current diagnosis for this admission?: Yes Plan: Normotensive blood pressures. Continue home dose losartan. Cardiac diet. (9) JODIE (obstructive sleep apnea) Is this a current diagnosis for this admission?: Yes Plan: CPAP nightly. (10) Benign prostatic hyperplasia Qualifiers: Lower urinary tract symptom presence: symptoms absent Qualified Code(s): N40.0 - Benign prostatic hyperplasia without lower urinary tract symptoms Is this a current diagnosis for this admission?: Yes Plan: Continue home dose Flomax. - Time Time Spent with patient: Less than 15 minutes Medications reviewed and adjusted accordingly: Yes Anticipated discharge: SNF - Short-term rehab Within: within 24 hours
== END 2019-02-13 14:02 | DRG 189 ==
LOC: ER 12:48 → EH 21:47 → INTOOBSV 21:47 → 3S 23:40 → OBSVTOIN 02-10 16:29
PROVIDERS: ADMIT Emergency Medicine; ATTEND Emergency Medicine
DX: J96.21 Acute and chronic respiratory failure with hypoxia (principal); R29.6 Repeated falls; E11.9 Type 2 diabetes mellitus without complications; J44.9 Chronic obstructive pulmonary disease, unspecified; F01.50 Vascular dementia, unspecified severity, without behavioral disturbance, psychotic disturbance, mood disturbance, and anxiety; E78.5 Hyperlipidemia, unspecified; I10 Essential (primary) hypertension; G47.33 Obstructive sleep apnea (adult) (pediatric); N40.0 Benign prostatic hyperplasia without lower urinary tract symptoms; E66.9 Obesity, unspecified; F17.210 Nicotine dependence, cigarettes, uncomplicated; F32.9 Major depressive disorder, single episode, unspecified; Z23 Encounter for immunization; Z79.899 Other long term (current) drug therapy; Z79.84 Long term (current) use of oral hypoglycemic drugs; Z99.81 Dependence on supplemental oxygen; Z86.73 Personal history of transient ischemic attack (TIA), and cerebral infarction without residual deficits; Z79.82 Long term (current) use of aspirin
CPT/HCPCS: 36415; 36600; 70450; 71045; 71260; 78582; 80048; 80053; 80164; 81001; 82306; 82533; 82550; 82553; 82607; 82803; 82962; 83036; 83735; 83880; 84439; 84443; 84481; 84484; 85025; 85027; 85379; 85652; 86140; 87040; 93005; 93010; 93306; 94640; 94660; 99285; A9540; A9567; G0378; J1644; J1815; J1940; J3490; J7512; J7614; Q9969

== ENCOUNTER 2019-03-02 12:06 | Inpatient (IN) | payer MEDICARE ==
[2019-03-02 12:29] LABS: ABSOLUTE BASOPHILS # (AUTO) 0.1 10^3/uL (0.0-0.2); ABSOLUTE EOSINOPHILS # (AUTO) 0.3 10^3/uL (0.0-0.6); ABSOLUTE MONOCYTES (AUTO) 0.9 10^3/uL (0.1-1.4); ABSOLUTE NEUT (AUTO) 8.3 10^3/uL (1.7-8.2); BASOPHILS % (AUTO) 0.6 % (0-2); EOSINOPHILS % (AUTO) 3.1 % (0-6); HEMATOCRIT 46.5 % (37.9-51.0); HEMOGLOBIN 15.8 g/dL (13.5-17.0); LYMPHOCYTES % (AUTO) 9.1 % (13-45); MEAN CORPUSCULAR HEMOGLOBIN 30.1 pg (27.0-33.4); MEAN CORPUSCULAR HGB CONC 34.1 g/dL (32.0-36.0); MEAN CORPUSCULAR VOLUME 88 fl (80-97); MONOCYTES % (AUTO) 8.8 % (3-13); PLATELET COUNT 166 10^3/uL (150-450); RED BLOOD COUNT 5.27 10^6/uL (4.35-5.55); RED CELL DISTRIBUTION WIDTH 14.4 % (11.5-14.0); SEGMENTED NEUTROPHILS % (AUTO) 78.4 % (42-78); TOTAL CELLS COUNTED % (AUTO) 100 %; WHITE BLOOD COUNT 10.6 10^3/uL (4.0-10.5)
[2019-03-02 12:45] LABS: VENOUS BLOOD BASE EXCESS -1.1 mmol/L; VENOUS BLOOD HCO3 21.5 mmol/L (20-32); VENOUS BLOOD PCO2 31.2 mmHg (35-63); VENOUS BLOOD PH 7.46 (7.30-7.42)
[2019-03-02 12:47] LABS: ALBUMIN 3.4 g/dL (3.5-5.0); ALKALINE PHOSPHATASE 73 U/L (38-126); ANION GAP 10 (5-19); ASPARTATE AMINO TRANSFERASE 15 U/L (17-59); BILIRUBIN,DIRECT 0.2 mg/dL (0.0-0.4); BILIRUBIN,TOTAL 0.9 mg/dL (0.2-1.3); BLOOD UREA NITROGEN 21 mg/dL (7-20); CALCIUM 9.6 mg/dL (8.4-10.2); CARBON DIOXIDE 23 mmol/L (22-30); CHLORIDE 103 mmol/L (98-107); GLUCOSE 128 mg/dL (75-110); POTASSIUM 4.8 mmol/L (3.6-5.0); TOTAL PROTEIN 6.2 g/dL (6.3-8.2)
--- NOTE | 2019-03-02 12:57 | RADIOLOGY REPORT (SQ) ---
EXAM DESCRIPTION: CHEST SINGLE VIEW COMPLETED DATE/TIME: 03/02/2019 12:39 pm REASON FOR STUDY: SOB COMPARISON: AP view of the chest from 02/10/2019 EXAM PARAMETERS: NUMBER OF VIEWS: One view. TECHNIQUE: Single frontal radiographic view of the chest acquired. RADIATION DOSE: NA LIMITATIONS: None. FINDINGS: LUNGS AND PLEURA: Unchanged prominence of the interstitium and thickening of the pleural l ining on the right. There is no consolidation, sizeable pleural effusion or pneumothorax. MEDIASTINUM AND HILAR STRUCTURES: Stable mediastinal and hilar contours. HEART AND VASCULAR STRUCTURES: Stable cardiac silhouette. BONES: No acute findings. HARDWARE: None in the chest. OTHER: No other findings. IMPRESSION: Unchanged radiographic appearance of the chest with prominence of the interstitium and t hickening of the pleural lining on the right. TECHNICAL DOCUMENTATION: JOB ID: [id number] [employer]- All Rights Reserved Reading location - IP/workstation name: [email or web address]
[2019-03-02 13:13] LABS: ADD MANUAL MICROSCOPIC YES; APPEARANCE,URINE CLEAR; BACTERIA,URINE 1+ /HPF; BILIRUBIN,URINE NEGATIVE (NEGATIVE); COLOR,URINE YELLOW; GLUCOSE, URINE NEGATIVE (NEGATIVE); KETONES,URINE NEGATIVE (NEGATIVE); LEUKOCYTE ESTERASE,URINE LARGE (NEGATIVE); NITRITE,URINE NEGATIVE (NEGATIVE); PROTEIN,URINE 30 mg/dL (NEGATIVE); URINE SPECIFIC GRAVITY 1.011
[2019-03-02] MEDS ORDERED: IPRATROPIUM/ALBUTEROL 0.5-2.5 MG/3 ML AMPUL NEB ONE ×2 (13:14→13:57)
[2019-03-02] MEDS ORDERED: ALBUTEROL SULFATE 0.083% NEB 2.5 MG/3 ML AMPUL NEB ONE (13:14)
--- NOTE | 2019-03-02 13:57 | EKG REPORT ---
SEVERITY:- ABNORMAL ECG - SINUS RHYTHM BORDERLINE LEFT AXIS DEVIATION EARLY PRECORDIAL TRNASITION : Confirmed by: Garland Raphael MD 02-Mar-2019 13:55:54
[2019-03-02] MEDS ORDERED: METHYLPREDNISOLONE INJ 125 MG/2 ML SDV IV ONE (14:05)
[2019-03-02] MEDS ORDERED: NORMAL SALINE 1000 ML 1,000 ML IV ONE (14:06)
--- NOTE | 2019-03-02 14:08 | ER Document Report ---
ED General - General Chief Complaint: Respiratory Distress Stated Complaint: DIFFICULTY BREATHING Time Seen by Provider: 03/02/19 13:20 Primary Care Provider: BARTOLO REAL MD [Primary Care Provider] - Follow up as needed TRAVEL OUTSIDE OF THE [place] IN LAST 30 DAYS: No - HPI Notes: This is a 73-year-old male who presents from home via rescue for evaluation of altered level of consciousness. Patient reportedly had wheezing in both of his lower lobes on exam twelve-lead at the scene showed some dysrhythmia but no acute myocardial injury pattern. Patient was given 1 albuterol and Atrovent treatment. Patient is usually on 2 L of oxygen at home. Patient also usually uses CPAP at home. Initial vital signs reported by EMS: Blood pressure 130/82, pulse ox 97% with out of her report whether was on room air not, heart rate 80, respiratory rate 20 blood sugar 147. Patient's spouse is at bedside and relates much of the history. She states the patient has some dementia and is hard of hearing. She also says the patient has appeared more fatigued with increased w ork of breathing over the past 3 or 4 days. Patient used to be a long-term smoker but no longer smokes. Differential diagnosis: COPD exacerbation, pneumonia, influenza, sepsis, - Related Data Allergies/Adverse Reactions: No Known Allergies Allergy (Verified 02/08/19 21:56) Past Medical History - Social History Smoking Status: Former Smoker Chew tobacco use (# tins/day): No Frequency of alcohol use: None Drug Abuse: None Family History: CVA Patient has suicidal ideation: No Patient has homicidal ideation: No - Past Medical History Cardiac Medical History: Reports: Hx Hypertension Denies: Hx Coronary Artery Disease, Hx Heart Attack Pulmonary Medical History: Reports: Hx Asthma, Hx COPD, Hx Respiratory Failure - Chronic uses oxygen at 4 L/min via nasal cannula continuously at home. Neurological Medical History: Denies: Hx Seizures Endocrine Medical History: Reports: Hx Diabetes Mellitus Type 2. Denies: Hx Diabetes Mellitus Type 1, Hx Hyperthyroidism, Hx Hypothyroidism Renal/ Medical History: Reports: Hx Benign Prostatic Hyperplasia GI Medical History: Denies: Hx Cirrhosis, Hx Hepatitis Musculoskeletal Medical History: Denies Hx Arthritis, Denies Hx Gout Skin Medical History: Denies Hx Eczema, Denies Hx Psoriasis Psychiatric Medical History: Reports: Hx Dementia, Hx Depression Infectious Medical History: Denies: Hx Hepatitis Past Surgical History: Reports: Hx Orthopedic Surgery Review of Systems - Review of Systems Constitutional: See HPI EENT: No symptoms reported Cardiovascular: No symptoms reported Respiratory: Cough, Short of breath Gastrointestinal: No symptoms reported Genitourinary: No symptoms reported Male Genitourinary: No symptoms reported Musculoskeletal: No symptoms reported Skin: No symptoms reported Hematologic/Lymphatic: No symptoms reported Neurological/Psychological: No symptoms reported -: Yes All other systems reviewed and negative Physical Exam - Vital signs Vitals: Pulse Ox 94 03/02/19 12:15 - Notes Notes: PHYSICAL EXAMINATION: GENERAL: Patient appears disheveled, has increased work of breathing, is using accessory muscles, is on 4 L by nasal cannula. HEAD: Atraumatic, normocephalic. EYES: Pupils equal round and reactive to light, extraocular movements intact, sclera anicteric, conjunctiva are normal. ENT: nares patent, oropharynx clear without exudates. Moist mucous membranes. NECK: Normal range of motion, supple without lymphadenopathy LUNGS: Breath sounds are very diminished on patient's left side and there is scant wheeze present on auscultation of the patient's right lung base HEART: Regular rate and rhythm without murmurs ABDOMEN: Soft, nontender, normoactive bowel sounds. No guarding, no rebound. No masses appreciated. EXTREMITIES: Normal range of motion, no pitting or edema. No cyanosis. Cap refill is less than 2 seconds in patient's fingertips bilaterally. Radial pulses 2+ bilaterally NEUROLOGICAL: Patient is very hard of hearing. PSYCH: Normal mood, normal affect. SKIN: Warm, Dry, normal turgor, no rashes or lesions noted. Course - Re-evaluation Re-evalutation: 03/02/19 18:06 Patient is currently sleeping with less work of breathing. Patient is still on 4 L of O2. Findings discussed with the patient's spouse who remains at the bedside. Plan is to admit the patient for acute on chronic respiratory failure. All questions were answered. - Vital Signs Vital signs: Temp Pulse Resp BP Pulse Ox 98.5 F 23 H 129/76 H 93 03/02/19 17:39 03/02/19 17:01 03/02/19 17:01 03/02/19 17:01 03/02/19 18:07 Vital signs reviewed by this MD. - Laboratory Result Diagrams: 03/02/19 11:53 03/02/19 11:53 Laboratory results interpreted by me: 03/02/19 03/02/19 03/02/19 11:53 11:53 11:53 WBC 10.6 H RDW 14.4 H Lymph % (Auto) 9.1 L Absolute Neuts (auto) 8.3 H Seg Neutrophils % 78.4 H VBG pH VBG pCO2 Sodium 135.6 L BUN 21 H Glucose 128 H AST 15 L Total Protein 6.2 L Albumin 3.4 L Urine Protein Urine Urobilinogen Ur Leukocyte Esterase Valproic Acid 16.5 L 03/02/19 03/02/19 12:13 12:46 WBC RDW Lymph % (Auto) Absolute Neuts (auto) Seg Neutrophils % VBG pH 7.46 H VBG pCO2 31.2 L Sodium BUN Glucose AST Total Protein Albumin Urine Protein 30 H Urine Urobilinogen 4.0 H Ur Leukocyte Esterase LARGE H Valproic Acid 03/02/19 18:07 Labs reviewed by this MD. - Diagnostic Test Radiology reviewed: Reports reviewed - EKG Interpretation by Me Additional EKG results interpreted by me: 03/02/19 18:08 EKG performed on 03/02/2019 at 1219 hrs. interpreted by this MD. Findings: Normal sinus rhythm, rate 81, normal axis, narrow QRS complex, no obvious ST elevation or depression injury pattern. - Consults BATCH ANALYST GUICHO GRIFFITH Time consulted: 18:05 Reason for consultation: 03/02/19 18:10 Acute on chronic respiratory failure Consulted provider: will come to ER Discharge - Discharge Clinical Impression: Acute and chronic respiratory failure Condition: Fair Disposition: ADMITTED OBSERVATION Admitting Provider: Mario (Hospitalist) Referrals: BARTOLO REAL MD [Primary Care Provider] - Follow up as needed
[2019-03-02 14:46] LABS: A TYPE INFLUENZA AG NEGATIVE (NEGATIVE)
[2019-03-02 14:47] LABS: B INFLUENZA AG NEGATIVE (NEGATIVE)
[2019-03-02] MEDS ORDERED: MAG HYDROX/AL HYDROX/SIMETH SUSP 30 ML UDCUP PO PRN (18:19)
[2019-03-02] MEDS ORDERED: ZOLPIDEM TARTRATE 5 MG TABLET PO PRN (18:19)
[2019-03-02] MEDS ORDERED: OXYCODONE-ACETAMINOPHEN 5-325 MG TABLET PO PRN (18:19)
[2019-03-02] MEDS ORDERED: ACETAMINOPHEN 325 MG TABLET PO PRN (18:19)
[2019-03-02] MEDS ORDERED: ONDANSETRON HCL INJ/PF 4 MG/2 ML SDV IV PRN (18:19)
[2019-03-02] MEDS ORDERED: DEXTROSE 40% GEL 15 GM TUBE PO PRN ×2 (18:24)
[2019-03-02] MEDS ORDERED: DEXTROSE 50%-WATER 25 GM/50 ML DISP.SYRIN IV PRN ×2 (18:24)
[2019-03-02] MEDS ORDERED: GLUCAGON,HUMAN RECOMB 1 MG INJ IM PRN (18:24)
[2019-03-02] MEDS ORDERED: CEFTRIAXONE INJ 1000 MG VIAL IV ONE (18:27)
[2019-03-02] MEDS ORDERED: IPRATROPIUM/ALBUTEROL 0.5-2.5 MG/3 ML AMPUL NEB SCH (18:30)
--- NOTE | 2019-03-02 18:31 | PDOC H&P ---
History of Present Illness Admission Date/PCP: 03/02/2019 BARTOLO REAL MD Patient complains of: Respiratory distress History of Present Illness: TORSTEN RAMIRES JR is a 73 year old male who presents from [facility] with respiratory distress. Patient reported to have wheezing throughout his lower lobes via EMS. Patient was given 1 albuterol and Atrovent treatment. Patient was placed on oxygen 4 L nasal cannula which is possibly wearing at room air with immediate response to his low O2 sat reading. At this time patient remains awake alert oriented. He is in no distress. He is remains on oxygen and is satting mid 90s at this time. Patient also has a history of type 2 diabetes mellitus COPD, pneumonia, had no fever prior to arrival no true aggravating factors. Other than not wearing his O2 Past Medical History Cardiac Medical History: Reports: Hypertension Denies: Coronary Artery Disease, Myocardial Infarction Pulmonary Medical History: Reports: Asthma, Chronic Obstructive Pulmonary Disease (COPD), Respiratory Failure - Chronic uses oxygen at 4 L/min via nasal cannula continuously at home. Neurological Medical History: Denies: Seizures Endocrine Medical History: Reports: Diabetes Mellitus Type 2 Denies: Diabetes Mellitus Type 1, Hyperthyroidism, Hypothyroidism GI Medical History: Denies: Cirrhosis, Hepatitis Musculoskeltal Medical History: Denies: Arthritis, Gout Skin Medical History: Denies: Eczema, Psoriasis Psychiatric Medical History: Reports: Dementia, Depression Hematology: Denies: Anemia, Bleeding Tendencies Past Surgical History Past Surgical History: Reports: Orthopedic Surgery Social History Information Source: Patient Lives with: [facility] Smoking Status: Former Smoker Electronic Cigarette use?: No Frequency of Alcohol Use: Rare Hx Recreational Drug Use: No Drugs: None Hx Prescription Drug Abuse: No - Advance Directive Resuscitation Status: Full Code Family History Family History: CVA Parental Family History Reviewed: Yes Children Family History Reviewed: Yes Sibling(s) Family History Reviewed.: Yes Medication/Allergy Home Medications: Acetaminophen [Tylenol 325 mg Tablet] 650 mg PO Q4HP PRN 03/02/19 Albuterol Sulfate [Ventolin 0.083% Neb 2.5 mg/3 mL Ampul] 3 ml NEB Q4HP PRN 03/02/19 Aspirin [Ecotrin 81 mg EC Tablet] 81 mg PO QAM 03/02/19 Carvedilol [Coreg 6.25 mg Tablet] 6.25 mg PO Q12 03/02/19 Divalproex Sodium [Depakote Sprinkle 125 mg Capsule] 125 mg PO Q12 03/02/19 Docusate Sodium [Colace 100 mg Capsule] 100 mg PO BID 03/02/19 Duloxetine HCl [Cymbalta 30 mg Capsule.dr] 30 mg PO Q12 03/02/19 Ergocalciferol (Vitamin D2) [Drisdol 50,000 unit (1.25MG) Capsule] 50,000 unit P O MO@0800 03/02/19 Losartan Potassium [Cozaar 50 mg Tablet] 50 mg PO Q12 03/02/19 Metformin HCl [Glucophage 500 mg Tablet] 500 mg PO QAM 03/02/19 Tamsulosin HCl [Flomax 0.4 mg Cap.sr] 0.4 mg PO BID 03/02/19 Allergies/Adverse Reactions: No Known Allergies Allergy (Verified 02/08/19 21:56) Review of Systems Constitutional: ABSENT: chills, fever(s), headache(s), weight gain, weight loss Eyes: ABSENT: visual disturbances Ears: ABSENT: hearing changes Cardiovascular: ABSENT: chest pain, dyspnea on exertion, edema, orthropnea, palpitations Respiratory: PRESENT: dyspnea, other - Wheeze. ABSENT: cough, hemoptysis Gastrointestinal: ABSENT: abdominal pain, constipation, diarrhea, hematemesis, hematochezia, nausea, vomiting Genitourinary: ABSENT: dysuria, hematuria Musculoskeletal: ABSENT: joint swelling Integumentary: ABSENT: rash, wounds Neurological: ABSENT: abnormal gait, abnormal speech, confusion, dizziness, focal weakness, syncope Psychiatric: ABSENT: anxiety, depression, homidical ideation, suicidal ideation Endocrine: ABSENT: cold intolerance, heat intolerance, polydipsia, polyuria Hematologic/Lymphatic: ABSENT: easy bleeding, easy bruising Physical Exam Vital Signs: Temp Pulse Resp BP Pulse Ox 98.5 F 20 135/73 H 92 03/02/19 17:39 03/02/19 18:17 03/02/19 18:17 03/02/19 18:17 Intake & Output 03/01/19 03/02/19 03/03/19 06:59 06:59 06:59 Weight 94.64 kg General appearance: PRESENT: no acute distress, well-developed, well-nourished Head exam: PRESENT: atraumatic, normocephalic Eye exam: PRESENT: conjunctiva pink, EOMI, PERRLA. ABSENT: scleral icterus Ear exam: PRESENT: normal external ear exam Mouth exam: PRESENT: moist, tongue midline Neck exam: ABSENT: carotid bruit, JVD, lymphadenopathy, thyromegaly Respiratory exam: PRESENT: decreased breath sounds, symmetrical, tachypnea, unlabored. ABSENT: rales, rhonchi, wheezes Cardiovascular exam: PRESENT: RRR. ABSENT: diastolic murmur, rubs, systolic murmur Pulses: PRESENT: +1 pedal pulses bilateral Vascular exam: PRESENT: normal capillary refill GI/Abdominal exam: PRESENT: normal bowel sounds, soft. ABSENT: distended, guarding, mass, organolmegaly, rebound, tenderness Rectal exam: PRESENT: deferred Extremities exam: PRESENT: full ROM. ABSENT: calf tenderness, clubbing, pedal edema Neurological exam: PRESENT: alert, awake, oriented to person, oriented to place, oriented to time, oriented to situation, CN II-XII grossly intact. ABSENT: motor sensory deficit Psychiatric exam: PRESENT: appropriate affect, normal mood. ABSENT: homicidal ideation, suicidal ideation Skin exam: PRESENT: dry, intact, warm. ABSENT: cyanosis, rash Results Laboratory Results: 03/02/19 11:53 03/02/19 11:53 03/02/19 03/02/19 03/02/19 11:53 11:53 12:13 WBC 10.6 H RBC 5.27 Hgb 15.8 Hct 46.5 MCV 88 MCH 30.1 MCHC 34.1 RDW 14.4 H Plt Count 166 Seg Neutrophils % 78.4 H VBG pH 7.46 H VBG pCO2 31.2 L VBG HCO3 21.5 VBG Base Excess -1.1 Sodium 135.6 L Potassium 4.8 Chloride 103 Carbon Dioxide 23 Anion Gap 10 BUN 21 H Creatinine 1.12 Est GFR ( Amer) > 60 Glucose 128 H Lactic Acid Calcium 9.6 Total Bilirubin 0.9 AST 15 L Alkaline Phosphatase 73 Total Protein 6.2 L Albumin 3.4 L Urine Color Urine Appearance Urine pH Ur Specific Palo Urine Protein Urine Glucose (UA) Urine Ketones Urine Blood Urine Nitrite Ur Leukocyte Esterase Ur Squamous Epith Cells 03/02/19 03/02/19 12:13 12:46 WBC RBC Hgb Hct MCV MCH MCHC RDW Plt Count Seg Neutrophils % VBG pH VBG pCO2 VBG HCO3 VBG Base Excess Sodium Potassium Chloride Carbon Dioxide Anion Gap BUN Creatinine Est GFR ( Amer) Glucose Lactic Acid 1.2 Calcium Total Bilirubin AST Alkaline Phosphatase Total Protein Albumin Urine Color YELLOW Urine Appearance CLEAR Urine pH 6.0 Ur Specific Pal[place] 1.011 Urine Protein 30 H Urine Glucose (UA) NEGATIVE Urine Ketones NEGATIVE Urine Blood NEGATIVE Urine Nitrite NEGATIVE Ur Leukocyte Esterase LARGE H Ur Squamous Epith Cells FEW Impressions: Chest X-Ray 03/02/19 12:15 IMPRESSION: Unchanged radiographic appearance of the chest with prominence of the interstitium and thickening of the pleural lining on the right. Assessment and Plan - Diagnosis (1) Acute and chronic respiratory failure with hypoxia Is this a current diagnosis for this admission?: Yes Plan: 03/02/2019-improved at this time. Continue O2 supplementally. O2 sats mid 90s at this time. Will give albuterol nebs every 4 hours. Reassess in the a.m. (2) UTI (urinary tract infection) Is this a current diagnosis for this admission?: Yes Plan: 03/02/2019-Rocephin 1 g IV daily. Await cultures for fitting organism may ghada nge plan of care as appropriate (3) Type 2 diabetes mellitus with obesity Is this a current diagnosis for this admission?: Yes Plan: 03/02/2019-once patient medication reconciliation is complete I will continue all home medications. Place patient on carbohydrate diet. Sliding scale insulin before meals at bedtime. (4) Hypertension Qualifiers: Hypertension type: essential hypertension Qualified Code(s): I10 - Essential (primary) hypertension Is this a current diagnosis for this admission?: Yes Plan: 03/02/2019-continue home losartan and Coreg (5) BPH (benign prostatic hyperplasia) Is this a current diagnosis for this admission?: Yes Plan: 2018-continue home Flomax - Time Time Spent with patient: 35 or more minutes
[2019-03-02] MEDS: IPRATROPIUM/ALBUTEROL 0.5-2.5 MG/3 ML AMPUL NEB SCH (20:56)
[2019-03-02] MEDS: DIVALPROEX SODIUM 125 MG CAP.SPRINK PO SCH (22:00)
[2019-03-02] MEDS: HEPARIN SOD (PORCINE) 5,000 UNIT/ML 1 ML VIAL SUBCUT SCH (22:22)
[2019-03-02] MEDS: LOSARTAN POTASSIUM 50 MG TABLET PO SCH (22:22)
[2019-03-02] MEDS: INSULIN REG, HUMAN 100 UNIT/ML 3 ML VIAL (PYX) SUBCUT SCH (22:22)
[2019-03-02] MEDS: CARVEDILOL 6.25 MG TABLET PO SCH (22:23)
[2019-03-02] MEDS ORDERED: DIVALPROEX SODIUM 125 MG CAP.SPRINK PO ONE (23:15)
[2019-03-03] MEDS: IPRATROPIUM/ALBUTEROL 0.5-2.5 MG/3 ML AMPUL NEB SCH ×6 (00:49→20:17)
[2019-03-03] MEDS: HEPARIN SOD (PORCINE) 5,000 UNIT/ML 1 ML VIAL SUBCUT SCH ×3 (06:14→22:07)
[2019-03-03 08:16] LABS: ANION GAP 13 (5-19); BLOOD UREA NITROGEN 22 mg/dL (7-20); CALCIUM 9.8 mg/dL (8.4-10.2); CARBON DIOXIDE 20 mmol/L (22-30); CHLORIDE 107 mmol/L (98-107); GLUCOSE 152 mg/dL (75-110); PHOSPHORUS 4.1 mg/dL (2.5-4.5); POTASSIUM 4.9 mmol/L (3.6-5.0)
[2019-03-03 08:20] LABS: HEMATOCRIT 46.7 % (37.9-51.0); HEMOGLOBIN 15.7 g/dL (13.5-17.0); MEAN CORPUSCULAR HEMOGLOBIN 29.7 pg (27.0-33.4); MEAN CORPUSCULAR HGB CONC 33.6 g/dL (32.0-36.0); MEAN CORPUSCULAR VOLUME 89 fl (80-97); PLATELET COUNT 163 10^3/uL (150-450); RED BLOOD COUNT 5.27 10^6/uL (4.35-5.55); RED CELL DISTRIBUTION WIDTH 14.3 % (11.5-14.0); WHITE BLOOD COUNT 8.8 10^3/uL (4.0-10.5)
[2019-03-03 08:30] LABS: FREE T4 (FREE THYROXINE) 1.24 ng/dL (0.78-2.19)
[2019-03-03 08:44] LABS: THYROID STIMULATING HORMONE 0.79 uIU/mL (0.47-4.68)
[2019-03-03] MEDS: NORMAL SALINE 1000 ML 1,000 ML IV PRN (10:10)
[2019-03-03] MEDS: TAMSULOSIN HCL 0.4 MG CAP.SR.24H PO SCH ×2 (10:12→19:46)
[2019-03-03] MEDS: LOSARTAN POTASSIUM 50 MG TABLET PO SCH ×2 (10:13→22:08)
[2019-03-03] MEDS: INSULIN REG, HUMAN 100 UNIT/ML 3 ML VIAL (PYX) SUBCUT SCH ×4 (10:14→22:01)
[2019-03-03] MEDS: CARVEDILOL 6.25 MG TABLET PO SCH ×2 (10:14→22:08)
[2019-03-03] MEDS: ASPIRIN 81 MG TABLET, ENT COATED PO SCH (10:14)
[2019-03-03] MEDS: METFORMIN HCL 500 MG TABLET PO SCH (10:14)
[2019-03-03] MEDS: CEFTRIAXONE 1 GM/D5W RTU 1 GM/50 ML RTUPB IV SCH (10:15)
[2019-03-03] MEDS: DIVALPROEX SODIUM 125 MG CAP.SPRINK PO SCH ×2 (10:17→22:08)
--- NOTE | 2019-03-03 15:32 | PDOC PROGRESS REPORT ---
Subjective Progress Note for:: 03/03/19 Subjective:: The patient is resting in bed. His tongue is extremely dry. He reports that he uses CPAP at home. Not only does wear it at night but he will wear it whenever he takes a nap during the day. He could not tell me his settings but seems to be very compliant with his therapy. He also states that there is an oxygen bleed in and he is not sure of the rate. The pain on how he feels he will turn his home oxygen up to 4 or 5 L and I believe the prescribed rate is 3 or 4 L. Regardless, he feels much better than yesterday. Reason For Visit: ACUTE ON CHRONIC ROTATORY FAILURE WITH HYPOXIA Physical Exam Vital Signs: Temp Pulse Resp BP Pulse Ox 97.5 F 76 18 138/71 H 94 03/03/19 08:23 03/03/19 13:00 03/03/19 13:00 03/03/19 08:23 03/03/19 13:00 Intake & Output 03/02/19 03/03/19 03/04/19 06:59 06:59 06:59 Intake Total 1000 520 Balance 1000 520 Weight 90.2 kg General appearance: PRESENT: cooperative, mild distress, well-developed Head exam: PRESENT: atraumatic, normocephalic Ear exam: PRESENT: normal external ear exam. ABSENT: bleeding, drainage Mouth exam: PRESENT: dry mucosa, tongue midline Respiratory exam: PRESENT: prolonged expiratory phas, symmetrical, tachypnea, wheezes - Erratic bilateral expiratory wheezes mostly upper lung feliz bilaterally. ABSENT: rales, rhonchi Cardiovascular exam: PRESENT: RRR, +S1, +S2. ABSENT: diastolic murmur, systolic murmur GI/Abdominal exam: PRESENT: normal bowel sounds, soft. ABSENT: distended, guarding, rebound, tenderness Rectal exam: PRESENT: deferred Extremities exam: PRESENT: other - Allevyn dressings left instep and left heel. ABSENT: pedal edema Musculoskeletal exam: PRESENT: ambulatory, normal inspection Neurological exam: PRESENT: alert, awake, oriented to person, oriented to place, oriented to situation, CN II-XII grossly intact Psychiatric exam: PRESENT: appropriate affect, normal mood. ABSENT: agitated, anxious Focused psych exam: ABSENT: delusional, restlessness Skin exam: PRESENT: dry, warm, other - Facial flushing. ABSENT: rash Results Laboratory Results: 03/03/19 07:14 03/03/19 07:14 03/03/19 03/03/19 03/03/19 07:14 07:14 07:14 WBC 8.8 RBC 5.27 Hgb 15.7 Hct 46.7 MCV 89 MCH 29.7 MCHC 33.6 RDW 14.3 H Plt Count 163 Sodium 139.6 Potassium 4.9 Chloride 107 Carbon Dioxide 20 L Anion Gap 13 BUN 22 H Creatinine 1.01 Est GFR ( Amer) > 60 Glucose 152 H Calcium 9.8 Phosphorus 4.1 Magnesium 2.4 H TSH 0.79 Free T4 1.24 Impressions: Chest X-Ray 03/02/19 12:15 IMPRESSION: Unchanged radiographic appearance of the chest with prominence of the interstitium and thickening of the pleural lining on the right. Assessment and Plan - Diagnosis (1) Acute and chronic respiratory failure with hypoxia Is this a current diagnosis for this admission?: Yes Plan: 03/03/2019-continue nebulizer treatments. Try to maintain oxygen saturation 90 to 94%. I spoke to the patient's and she is going to bring in the CPAP unit for him to use. (2) UTI (urinary tract infection) Qualifiers: Urinary tract infection type: acute cystitis Hematuria presence: without hematuria Qualified Code(s): N30.00 - Acute cystitis without hematuria Is this a current diagnosis for this admission?: Yes Plan: 03/03/2019-urine culture was positive for gram-positive cocci. Await final identification before changing antibiotics. (3) Diabetes mellitus type 2 in nonobese Is this a current diagnosis for this admission?: Yes Plan: 03/03/2019-continue current regimen including Accu-Cheks and sliding scale. (4) Hypertension Qualifiers: Hypertension type: essential hypertension Qualified Code(s): I10 - Es sential (primary) hypertension Is this a current diagnosis for this admission?: Yes Plan: 03/03/2019-the patient is on Coreg and losartan. Continue same. (5) Benign prostatic hyperplasia Qualifiers: Lower urinary tract symptom presence: symptoms absent Qualified Code(s): N40.0 - Benign prostatic hyperplasia without lower urinary tract symptoms Is this a current diagnosis for this admission?: Yes Plan: 03/03/2019-continue Flomax - Time Time Spent with patient: 15-24 minutes Medications reviewed and adjusted accordingly: Yes
[2019-03-04] MEDS: IPRATROPIUM/ALBUTEROL 0.5-2.5 MG/3 ML AMPUL NEB SCH ×6 (00:37→20:12)
[2019-03-04] MEDS: NORMAL SALINE 1000 ML 1,000 ML IV PRN ×2 (02:46→16:34)
[2019-03-04] MEDS: HEPARIN SOD (PORCINE) 5,000 UNIT/ML 1 ML VIAL SUBCUT SCH ×3 (05:20→22:58)
[2019-03-04] MEDS: CARVEDILOL 6.25 MG TABLET PO SCH ×2 (11:49→23:01)
[2019-03-04] MEDS: ASPIRIN 81 MG TABLET, ENT COATED PO SCH (11:49)
[2019-03-04] MEDS: TAMSULOSIN HCL 0.4 MG CAP.SR.24H PO SCH ×2 (11:50→18:21)
[2019-03-04] MEDS: LOSARTAN POTASSIUM 50 MG TABLET PO SCH ×2 (11:50→23:02)
[2019-03-04] MEDS: METFORMIN HCL 500 MG TABLET PO SCH (11:50)
[2019-03-04] MEDS: CEFTRIAXONE 1 GM/D5W RTU 1 GM/50 ML RTUPB IV SCH (11:51)
[2019-03-04] MEDS: DIVALPROEX SODIUM 125 MG CAP.SPRINK PO SCH ×2 (11:52→23:03)
--- NOTE | 2019-03-04 15:12 | PDOC PROGRESS REPORT ---
Subjective Progress Note for:: 03/04/19 Subjective:: The patient was napping. He did forget to put his CPAP on. He awakens easily. He has no complaints. We do have the final results on the urine culture and it is enterococcus. Reason For Visit: RESP FAILURE,COPD Physical Exam Vital Signs: Temp Pulse Resp BP Pulse Ox 98.0 F 63 18 128/63 H 94 03/04/19 08:00 03/04/19 12:28 03/04/19 12:28 03/04/19 08:00 03/04/19 12:28 Intake & Output 03/03/19 03/04/19 03/05/19 06:59 06:59 06:59 Intake Total 1000 1830 Balance 1000 1830 Weight 90.2 kg 94.4 kg General appearance: PRESENT: no acute distress, well-developed, other - Was napping Head exam: PRESENT: atraumatic, normocephalic Eye exam: PRESENT: conjunctiva pink. ABSENT: scleral icterus Mouth exam: PRESENT: dry mucosa - Oral mucosa is still extremely dry, tongue midline Respiratory exam: PRESENT: prolonged expiratory phas, rales - Faint at bases, unlabored. ABSENT: tachypnea, wheezes Cardiovascular exam: PRESENT: RRR, +S1, +S2 GI/Abdominal exam: PRESENT: normal bowel sounds, soft. ABSENT: distended, tenderness Rectal exam: PRESENT: deferred Extremities exam: ABSENT: joint swelling, pedal edema Musculoskeletal exam: PRESENT: normal inspection. ABSENT: deformity Neurological exam: PRESENT: alert, awake - Awakens quite easily from his nap, oriented to person, oriented to place, oriented to time, oriented to situation, CN II-XII grossly intact Psychiatric exam: PRESENT: appropriate affect, normal mood. ABSENT: agitated, anxious Focused psych exam: ABSENT: delusional, restlessness Results Laboratory Results: 03/03/19 07:14 03/03/19 07:14 03/02/19 12:46 Fuentes Catheter Urine Culture - Final Enterococcus Faecalis(Group D) Impressions: Chest X-Ray 03/02/19 12:15 IMPRESSION: Unchanged radiographic appearance of the chest with prominence of the interstitium and thickening of the pleural lining on the right. Assessment and Plan - Diagnosis (1) Acute and chronic respiratory failure with hypoxia Is this a current diagnosis for this admission?: Yes Plan: 03/03/2019-improved at this time. Continue O2 supplementally. O2 sats mid 90s at this time. Will give albuterol nebs every 4 hours. Reassess in the a.m. 03/04/2019-continues to do well. I will decrease the frequency of the scheduled nebulizer treatments and add Pulmicort. (2) UTI (urinary tract infection) Qualifiers: Urinary tract infection type: acute cystitis Hematuria presence: without hematuria Qualified Code(s): N30.00 - Acute cystitis without hematuria Is this a current diagnosis for this admission?: Yes Plan: 03/03/2019-urine culture was positive for gram-positive cocci. Await final identification before changing antibiotics. 03/04/2019-enterococcus was identified. Change antibiotics to ampicillin. (3) Diabetes mellitus type 2 in nonobese Is this a current diagnosis for this admission?: Yes Plan: 03/03/2019-continue current regimen including Accu-Cheks and sliding scale. 03/04/2019-excellent glucose control on current regimen. (4) Hypertension Qualifiers: Hypertension type: essential hypertension Qualified Code(s): I10 - Essential (primary) hypertension Is this a current diagnosis for this admission?: Yes Plan: 03/03/2019-the patient is on Coreg and losartan. Continue same. 03/04/2019-no changes (5) Benign prostatic hyperplasia Qualifiers: Lower urinary tract symptom presence: symptoms absent Qualified Code(s): N40.0 - Benign prostatic hyperplasia without lower urinary tract symptoms Is this a current diagnosis for this admission?: Yes Plan: 03/03/2019-continue Flomax 03/04/2019-as above - Time Time Spent with patient: 15-24 minutes Medications reviewed and adjusted accordingly: Yes Anticipated discharge: SNF Within: within 48 hours
[2019-03-04] MEDS: AMPICILLIN TRIHYD 500 MG CAPSULE PO SCH ×2 (18:21→23:01)
[2019-03-04] MEDS: INSULIN REG, HUMAN 100 UNIT/ML 3 ML VIAL (PYX) SUBCUT SCH ×4 (18:25→23:03)
[2019-03-04] MEDS ORDERED: LEVALBUTEROL HCL NEB 0.63 MG/3 ML AMPUL NEB PRN (22:20)
[2019-03-05] MEDS: IPRATROPIUM/ALBUTEROL 0.5-2.5 MG/3 ML AMPUL NEB SCH ×4 (02:07→20:39)
[2019-03-05] MEDS: NORMAL SALINE 1000 ML 1,000 ML IV PRN (06:09)
[2019-03-05] MEDS: HEPARIN SOD (PORCINE) 5,000 UNIT/ML 1 ML VIAL SUBCUT SCH ×2 (06:10→14:50)
[2019-03-05] MEDS: AMPICILLIN TRIHYD 500 MG CAPSULE PO SCH ×3 (06:10→17:39)
[2019-03-05] MEDS: INSULIN REG, HUMAN 100 UNIT/ML 3 ML VIAL (PYX) SUBCUT SCH ×3 (07:57→16:53)
[2019-03-05] MEDS: METFORMIN HCL 500 MG TABLET PO SCH (08:00)
[2019-03-05] MEDS: ASPIRIN 81 MG TABLET, ENT COATED PO SCH (08:00)
[2019-03-05] MEDS: BUDESONIDE NEB 0.5 MG/2 ML AMPUL NEB SCH ×2 (08:20→20:39)
[2019-03-05] MEDS: TAMSULOSIN HCL 0.4 MG CAP.SR.24H PO SCH ×2 (10:49→17:39)
[2019-03-05] MEDS: CARVEDILOL 6.25 MG TABLET PO SCH (10:49)
[2019-03-05] MEDS: DIVALPROEX SODIUM 125 MG CAP.SPRINK PO SCH (10:49)
[2019-03-05] MEDS: LOSARTAN POTASSIUM 50 MG TABLET PO SCH (10:49)
[2019-03-05] MEDS ORDERED: INFLUENZA QUAD (6MOS+) 2019-20 VAC 0.5 ML SYR IM ONE (11:50)
--- NOTE | 2019-03-05 13:20 | PDOC TRANSFER SUMMARY ---
Impression - Admit/DC Date/PCP Admission Date/Primary Care Provider: 03/04/19 05:48 BARTOLO REAL MD Discharge Date: 03/05/19 - Discharge Diagnosis (1) Acute and chronic respiratory failure with hypoxia Is this a current diagnosis for this admission?: Yes (2) UTI (urinary tract infection) Is this a current diagnosis for this admission?: Yes (3) Diabetes mellitus type 2 in nonobese Is this a current diagnosis for this admission?: Yes (4) Hypertension Is this a current diagnosis for this admission?: Yes (5) Benign prostatic hyperplasia Is this a current diagnosis for this admission?: Yes - Additional Information Resuscitation Status: Full Code Discharge Diet: Diabetic, Other (Comments) - Suggest soft mechanical ground meats thickened liquids Discharge Activity: Activity As Tolerated Referrals: [facility] [Outside] Home Medications: Acetaminophen [Tylenol 325 mg Tablet] 650 mg PO Q4HP PRN 03/02/19 Albuterol Sulfate [Ventolin 0.083% Neb 2.5 mg/3 mL Ampul] 3 ml NEB Q4HP PRN 03/02/19 Aspirin [Ecotrin 81 mg EC Tablet] 81 mg PO QAM 03/02/19 Carvedilol [Coreg 6.25 mg Tablet] 6.25 mg PO Q12 03/02/19 Divalproex Sodium [Depakote Sprinkle 125 mg Capsule] 125 mg PO Q12 03/02/19 Docusate Sodium [Colace 100 mg Capsule] 100 mg PO BID 03/02/19 Duloxetine HCl [Cymbalta 30 mg Capsule.dr] 30 mg PO Q12 03/02/19 Ergocalciferol (Vitamin D2) [Drisdol 50,000 unit (1.25MG) Capsule] 50,000 unit PO MO@0800 03/02/19 Losartan Potassium [Cozaar 50 mg Tablet] 50 mg PO Q12 03/02/19 Metformin HCl [Glucophage 500 mg Tablet] 500 mg PO QAM 03/02/19 Tamsulosin HCl [Flomax 0.4 mg Cap.sr] 0.4 mg PO BID 03/02/19 Ampicillin Trihydrate [Princepen 500 mg Capsule] 500 mg PO Q6 capsule 03/05/19 Budesonide [Pulmicort Neb 0.5 mg/2 ml Ampul] 0.5 mg NEB RTQ12 ampul.neb 11/01/19 Insulin Regular, Human [Humulin R (Reg) Insulin 100 unit/mL] 0 - 12 unit SUBCUT ACHS unit 03/05/19 Ipratropium/Albuterol Sulfate [Duoneb 3 ml Ampul] 3 ml NEB RTQ6 vial.banner 03/05/19 Mag Hydrox/Al Hydrox/Simeth [Maalox Plus Susp 30 Udcup] 30 ml PO Q6HP PRN udc 03/05/19 History of Present Illiness History of Present Illness: TORSTEN RAMIRES JR is a 73 year old male with chronic obstructive pulmonary disease who was feeling more short of breath and wheezy. He was sent from [place]. He normally wears 3 to 4 L of oxygen continuously and wears CPAP with oxygen bleed in. He was found to respond to nebulizer treatments. He was also found to have a positive urinalysis and urine culture was obtained. He was referred to the hospital service for admission. Hospital Course Hospital Course: The patient had a fairly unremarkable hospital course. For the acute on chronic respiratory failure he responded very well to aggressive nebulizer treatments. This included inhaled steroids. He is normally on 3 to 4 L of oxygen at home. He did confide that he will sometimes put up to 5 L. His goal should be an oxygen saturation of 90 to 94% at the most. He is very compliant with his CPAP as well. Urinary tract infection with enterococcus-once sensitivities were obtained he was changed to ampicillin. Complete ampicillin therapy on March 11. We continued his other medications including tamsulosin for BPH, metformin and sliding scale for his diabetes and monitored his labs and vital signs. During today's encounter the patient's reported coughing when eating and as he was discharging today I told her I would order speech therapy to see him at [facility]. Physical Exam Vital Signs: Temp Pulse Resp BP Pulse Ox 97.9 F 50 L 18 110/55 L 94 03/04/19 22:17 03/05/19 08:19 03/05/19 08:19 03/04/19 22:17 03/05/19 08:19 Intake & Output 03/04/19 03/05/19 03/06/19 06:59 06:59 06:59 Intake Total 1830 2600 Balance 1830 2600 Weight 94.4 kg 96.8 kg General appearance: PRESENT: no acute distress, cooperative, well-developed Head exam: PRESENT: atraumatic, normocephalic Mouth exam: PRESENT: dry mucosa, tongue midline - Tongue is midline but he tends to curl the tip of his tongue. Respiratory exam: PRESENT: prolonged expiratory phas, symmetrical, tachypnea, wheezes - Occasional expiratory wheeze. ABSENT: rales, rhonchi Cardiovascular exam: PRESENT: RRR, +S1, +S2 GI/Abdominal exam: PRESENT: normal bowel sounds, soft. ABSENT: distended, tenderness Neurological exam: PRESENT: alert, awake, oriented to person, oriented to place, oriented to situation Psychiatric exam: ABSENT: agitated, anxious Results Laboratory Results: WBC 8.8 10^3/uL (4.0-10.5) 03/03/19 07:14 RBC 5.27 10^6/uL (4.35-5.55) 03/03/19 07:14 Hgb 15.7 g/dL (13.5-17.0) 03/03/19 07:14 Hct 46.7 % (37.9-51.0) 03/03/19 07:14 MCV 89 fl (80-97) 03/03/19 07:14 MCH 29.7 pg (27.0-33.4) 03/03/19 07:14 MCHC 33.6 g/dL (32.0-36.0) 03/03/19 07:14 RDW 14.3 % (11.5-14.0) H 03/03/19 07:14 Plt Count 163 10^3/uL (150-450) 03/03/19 07:14 Lymph % (Auto) 9.1 % (13-45) L 03/02/19 11:53 [place] % (Auto) 8.8 % (3-13) 03/02/19 11:53 Eos % (Auto) 3.1 % (0-6) 03/02/19 11:53 Baso % (Auto) 0.6 % (0-2) 03/02/19 11:53 Absolute Neuts (auto) 8.3 10^3/uL (1.7-8.2) H 03/02/19 11:53 Absolute Lymphs (auto) 1.0 10^3/uL (0.5-4.7) 03/02/19 11:53 Absolute Monos (auto) 0.9 10^3/uL (0.1-1.4) 03/02/19 11:53 Absolute Eos (auto) 0.3 10^3/uL (0.0-0.6) 03/02/19 11:53 Absolute Basos (auto) 0.1 10^3/uL (0.0-0.2) 03/02/19 11:53 Seg Neutrophils % 78.4 % (42-78) H 03/02/19 11:53 VBG pH 7.46 (7.30-7.42) H 03/02/19 12:13 VBG pCO2 31.2 mmHg (35-63) L 03/02/19 12:13 VBG HCO3 21.5 mmol/L (20-32) 03/02/19 12:13 VBG Base Excess -1.1 mmol/L 03/02/19 12:13 Sodium 139.6 mmol/L (137-145) 03/03/19 07:14 Potassium 4.9 mmol/L (3.6-5.0) 03/03/19 07:14 Chloride 107 mmol/L (98-107) 03/03/19 07:14 Carbon Dioxide 20 mmol/L (22-30) L 03/03/19 07:14 Anion Gap 13 (5-19) 03/03/19 07:14 BUN 22 mg/dL (7-20) H 03/03/19 07:14 Creatinine 1.01 mg/dL (0.52-1.25) 03/03/19 07:14 Est GFR ( Amer) > 60 (>60) 03/03/19 07:14 Est GFR (MDRD) Non-Af > 60 (>60) 03/03/19 07:14 Glucose 152 mg/dL (75-110) H 03/03/19 07:14 POC Glucose 96 mg/dL (70-110) 03/05/19 11:20 Lactic Acid 1.2 mmol/L (0.7-2.1) 03/02/19 12:13 Calcium 9.8 mg/dL (8.4-10.2) 03/03/19 07:14 Phosphorus 4.1 mg/dL (2.5-4.5) 03/03/19 07:14 Magnesium 2.4 mg/dL (1.6-2.3) H 03/03/19 07:14 Total Bilirubin 0.9 mg/dL (0.2-1.3) 03/02/19 11:53 Direct Bilirubin 0.2 mg/dL (0.0-0.4) 03/02/19 11:53 Neonat Total Bilirubin Not Reportable 03/02/19 11:53 Neonat Direct Bilirubin Not Reportable 03/02/19 11:53 Neonat Indirect Bili Not Reportable 03/02/19 11:53 AST 15 U/L (17-59) L 03/02/19 11:53 ALT 24 U/L (<50) 03/02/19 11:53 Alkaline Phosphatase 73 U/L (38-126) 03/02/19 11:53 Total Protein 6.2 g/dL (6.3-8.2) L 03/02/19 11:53 Albumin 3.4 g/dL (3.5-5.0) L 03/02/19 11:53 TSH 0.79 uIU/mL (0.47-4.68) 03/03/19 07:14 Free T4 1.24 ng/dL (0.78-2.19) 03/03/19 07:14 Urine Color YELLOW 03/02/19 12:46 Urine Appearance CLEAR 03/02/19 12:46 Urine pH 6.0 (5.0-9.0) 03/02/19 12:46 Ur Specific [place] 1.011 03/02/19 12:46 Urine Protein 30 mg/dL (NEGATIVE) H 03/02/19 12:46 Urine Glucose (UA) NEGATIVE mg/dL (NEGATIVE) 03/02/19 12:46 Urine Ketones NEGATIVE mg/dL (NEGATIVE) 03/02/19 12:46 Urine Blood NEGATIVE (NEGATIVE) 03/02/19 12:46 Urine Nitrite NEGATIVE (NEGATIVE) 03/02/19 12:46 Urine Bilirubin NEGATIVE (NEGATIVE) 03/02/19 12:46 Urine Urobilinogen 4.0 mg/dL (<2.0) H 03/02/19 12:46 Ur Leukocyte Esterase LARGE (NEGATIVE) H 03/02/19 12:46 Urine WBC 5-10 /HPF 03/02/19 12:46 Ur Squamous Epith Cells FEW /HPF 03/02/19 12:46 Urine Bacteria 1+ /HPF 03/02/19 12:46 Urine Mucus 2+ 03/02/19 12:46 Urine Ascorbic Acid NEGATIVE (NEGATIVE) 03/02/19 12:46 Valproic Acid 16.5 ug/mL (50.0-120.0) L 03/02/19 11:53 Influenza A (Rapid) NEGATIVE (NEGATIVE) 03/02/19 14:13 Influenza B (Rapid) NEGATIVE (NEGATIVE) 03/02/19 14:13 Impressions: Chest X-Ray 03/02/19 12:15 IMPRESSION: Unchanged radiographic appearance of the chest with prominence of the interstitium and thickening of the pleural lining on the right. Plan Health Concerns: Over time his pulmonary status is likely to decline. He may very well have had mild dysphagia for some time prior to hospitalization. I will suggest soft mechanical with ground meats and nectar thick liquids until speech therapy can evaluate him at [facility]. Plan of Treatment: Transition to [facility]. Time Spent: Greater than 30 Minutes Stroke Is this a Stroke Patient?: No Acute Heart Failure - Is this a Heart Failure Patient?: No
[2019-03-05 17:15] VITALS: BP 149/76
== END 2019-03-05 20:30 | DRG 189 ==
LOC: ER 12:06 → EH 18:24 → 4S 20:15 → OBSVTOIN 03-04 05:48
PROVIDERS: ADMIT Hospitalist; ATTEND Hospitalist
PROC: 5A09457 Assistance with Respiratory Ventilation, 24-96 Consecutive Hours, Continuous Positive Airway Pressure (ICD-10-PCS; principal; 2019-03-03)
PROC: 3E02340 Introduction of Influenza Vaccine into Muscle, Percutaneous Approach (ICD-10-PCS; 2019-03-05)
DX: J96.21 Acute and chronic respiratory failure with hypoxia (principal); J44.1 Chronic obstructive pulmonary disease with (acute) exacerbation; N30.00 Acute cystitis without hematuria; E11.9 Type 2 diabetes mellitus without complications; I10 Essential (primary) hypertension; B95.2 Enterococcus as the cause of diseases classified elsewhere; F32.9 Major depressive disorder, single episode, unspecified; F03.90 Unspecified dementia, unspecified severity, without behavioral disturbance, psychotic disturbance, mood disturbance, and anxiety; E66.9 Obesity, unspecified; N40.1 Benign prostatic hyperplasia with lower urinary tract symptoms; Z23 Encounter for immunization; Z79.899 Other long term (current) drug therapy; Z79.82 Long term (current) use of aspirin; Z79.4 Long term (current) use of insulin; Z99.81 Dependence on supplemental oxygen; Z87.891 Personal history of nicotine dependence; Z82.3 Family history of stroke
CPT/HCPCS: 36415; 71045; 80048; 80053; 80164; 81001; 82803; 82962; 83605; 83735; 84100; 84439; 84443; 85025; 85027; 87040; 87086; 87088; 87186; 87804; 90686; 93005; 93010; 94640; 94799; 96374; 99285; G0378; J0696; J1644; J1815; J2930; J3490; J7030; J7620